=== PATIENT | female | born 1935 | race Caucasian/White ===

== ENCOUNTER 2016-12-13 09:19 | Emergency (ER) | payer MEDICARE ==
[~2016-12-13] VITALS: Ht 165.1 cm; Wt 58.2 kg
[~2016-12-13 09:19] MED LIST: ALPR0.5T99 PO; AMLO2.5T PO; ATOR10 PO; BIOT10004 PO; COZA100T PO; FISH1000 PO; FLON0.053; LEVO.05 PO; OCUVTAB PO; OMEP20CA5 PO; PANT20 PO; POTA-243 PO; PROP150T PO; VIT D-3 PO; VITA10002 PO; WARF-20 PO
[2016-12-13 09:28] VITALS: BP 159/86; PULSE 81; RESP 16; TEMP 97.8; O2SAT 99
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
[2016-12-13] MEDS ORDERED: TRAM50TA PO (09:56)
[2016-12-13] MEDS ORDERED: LEVO50TA4 PO (09:56)
[2016-12-13] MEDS ORDERED: COUM4TAB PO (09:56)
[2016-12-13] MEDS ORDERED: LOSA100T PO (09:56)
[2016-12-13] MEDS ORDERED: ROSU1TAB4 PO (09:56)
[2016-12-13] MEDS ORDERED: DONE5TAB7 PO (09:56)
[2016-12-13] MEDS ORDERED: PROP150T PO (09:56)
[2016-12-13] MEDS ORDERED: PANT40TA3 PO (09:56)
--- NOTE | 2016-12-13 10:03 | RADHPO ---
EXAM DATE/TIME: 12/13/2016 09:46 [facility] COMPARISON: CT BRAIN W/O CONTRAST, August 20, 2013, 15:18. INDICATIONS : Dizziness since last night. RADIATION DOSE: 60.59 CTDIvol (mGy) MEDICAL HISTORY : Cerebrovascular disease. Hypertension. SURGICAL HISTORY : Hysterectomy. Occipital infarct. cataract surgery. ENCOUNTER: Initial ACUITY: 2 days PAIN SCALE: 0/10 LOCATION: cranial TECHNIQUE: Multiple contiguous axial images were obtained of the head. Using automated exposure control and adj ustment of the mA and/or kV according to patient size, radiation dose was kept as low as reasonably a chievable to obtain optimal diagnostic quality images. FINDINGS: CEREBRUM: Remote left occipital infarct with minimal encephalomalacia. Scattered areas of low attenuation in th e white matter. The ventricles are normal for age. No evidence of midline shift, mass lesion, hemorr avtar or acute infarction. No extra-axial fluid collections are seen. POSTERIOR FOSSA: The cerebellum and brainstem are intact. The 4th ventricle is midline. The cerebellopontine angle i s unremarkable. EXTRACRANIAL: The visualized portion of the orbits is intact. SKULL: The calvaria is intact. No evidence of skull fracture. CONCLUSION: 1. Old left occipital infarct. 2. Nonspecific white matter changes. 3. No acute intracranial abnormality. Toby Keith MD on December 13, 2016 at 9:59 Board Certified Radiologist. This report was verified electronically.
[2016-12-13 10:26] LABS: AUTOMATED NEUTROPHIL # 4.9 TH/MM3 (1.8-7.7); BASOPHIL # 0.1 TH/MM3 (0-0.2); BASOPHIL % 0.8 % (0.0-2.0); EOSINOPHIL # 0.1 TH/MM3 (0-0.4); EOSINOPHIL % 0.8 % (0.0-4.0); HEMATOCRIT 34.7 % (35.0-46.0); LYMPH % 20.1 % (9.0-44.0); LYMPHOCYTE # 1.4 TH/MM3 (1.0-4.8); MEAN CELL VOLUME 83.4 FL (80.0-100.0); MEAN CORPUSCULAR HEMOGLOBIN 27.3 PG (27.0-34.0); MEAN CORPUSCULAR HGB CONC 32.7 % (32.0-36.0); MONO % 5.9 % (0.0-8.0); NEUT % 72.4 % (16.0-70.0); PLATELET COUNT 267 TH/MM3 (150-450); RED BLOOD COUNT 4.16 MIL/MM3 (4.00-5.30); RED CELL DISTRIBUTION WIDTH 15.6 % (11.6-17.2); WHITE BLOOD COUNT 6.9 TH/MM3 (4.0-11.0)
[2016-12-13 10:28] LABS: HEMO FLAGS DIFF FINAL
[2016-12-13 10:30] VITALS: BP 166/79; PULSE 66; RESP 16; O2SAT 99
[2016-12-13 10:35] LABS: POTASSIUM 3.5 MEQ/L (3.5-5.1)
[2016-12-13 10:39] LABS: BICARBONATE 25.2 MEQ/L (21.0-32.0)
[2016-12-13 10:41] LABS: PROTHROMBIN TIME - PATIENT 34.7 SEC (9.8-11.6)
--- NOTE | 2016-12-13 11:00 | RADHPO ---
EXAM DATE/TIME: 12/13/2016 10:27 [facility] COMPARISON: CHEST SINGLE AP, July 22, 2015, 11:23. INDICATIONS : Short of breath, nausea. MEDICAL HISTORY : None. SURGICAL HISTORY : Pacemaker. removal of pacemaker ENCOUNTER: Initial ACUITY: 2 days PAIN SCORE: 0/10 LOCATION: Bilateral chest FINDINGS: Portable AP view of the chest demonstrates a normal-sized cardiac silhouette. No effusion, consolidat ion, or pneumothorax is visualized. The bones and soft tissues demonstrate no acute abnormality. CONCLUSION: No acute cardiopulmonary abnormality is identified. Farhan Amaya MD on December 13, 2016 at 10:58 Board Certified Radiologist. This report was verified electronically.
[2016-12-13] MEDS ORDERED: MULT1TAB46 PO (11:17)
[2016-12-13] MEDS ORDERED: ALPR.5 PO (11:17)
[2016-12-13] MEDS ORDERED: VITA10002 PO (11:18)
[2016-12-13] MEDS ORDERED: BIOTCAP PO (11:18)
[2016-12-13] MEDS ORDERED: FLUT1SPR5 EACH NARE (11:21)
[2016-12-13] MEDS ORDERED: CEPH-460 PO (11:31)
[2016-12-13 11:44] VITALS: BP 158/65
--- NOTE | 2016-12-13 20:10 | EKG ---
Date Performed: 12/13/2016 Time Performed: 10:01:12 PTAGE: 81 years EKG: Sinus rhythm Anterior T wave changes are nonspecific Borderline ECG PREVIOUS TRACING : 08/20/2013 12.33 Compared to prior tracing no significant change DOCTOR: Hermila Garcia Interpretating Date/Time 12/13/2016 20:08:21
== END 2016-12-13 11:48 | disposition home or self-care (01) ==
LOC: PHED 09:19
DX: J01.00 Acute maxillary sinusitis, unspecified (principal); I48.91 Unspecified atrial fibrillation; R00.2 Palpitations; R06.02 Shortness of breath; M79.1 Myalgia; R53.1 Weakness; I10 Essential (primary) hypertension; I50.9 Heart failure, unspecified; K21.9 Gastro-esophageal reflux disease without esophagitis
CPT/HCPCS: 70450; 71010; 80048; 83880; 85025; 85610; 85730; 93005; 99285

== ENCOUNTER 2017-09-04 11:24 | Emergency (ER) | payer MEDICARE ==
[~2017-09-04] VITALS: Ht 160 cm; Wt 54.0 kg
[~2017-09-04 11:24] MED LIST changes: +ALPR.5 PO; -ALPR0.5T99 PO; -AMLO2.5T PO; -ATOR10 PO; -BIOT10004 PO; +BIOTCAP PO; +CEPH-460 PO; +COUM4TAB PO; -COZA100T PO; +DONE5TAB7 PO; -FISH1000 PO; -FLON0.053; +FLUT1SPR5 EACH NARE; -LEVO.05 PO; +LEVO50TA4 PO; +LOSA100T PO; +MULT1TAB46 PO; -OCUVTAB PO; -OMEP20CA5 PO; -PANT20 PO; +PANT40TA3 PO; -POTA-243 PO; +ROSU1TAB4 PO; +TRAM50TA PO; -VIT D-3 PO; -WARF-20 PO
[2017-09-04 11:36] VITALS: BP 120/58; PULSE 86; RESP 16; TEMP 98.1; O2SAT 98
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
--- NOTE | 2017-09-04 12:53 | RADRPT ---
EXAM DATE/TIME: 09/04/2017 12:31 [facility] COMPARISON: CHEST SINGLE AP, December 13, 2016, 10:27. INDICATIONS : Cough MEDICAL HISTORY : Hypertension. Congestive heart failure. Hypercholesterolemia. AFIB SURGICAL HISTORY : Pacemaker insertion/removal ENCOUNTER: Initial ACUITY: 2 weeks PAIN SCORE: 0/10 LOCATION: Bilateral chest FINDINGS: The heart is normal in size. There are chronic interstitial changes predominantly in the lung bases. The lungs are otherwise clear. The exam is stable compared to previous dated 12/13/16. The visualized osseous structures appear grossly intact. CONCLUSION: 1. Chronic appearing interstitial changes. No acute abnormality. Manish Malik MD on September 04, 2017 at 12:50 Board Certified Radiologist. This report was verified electronically.
[2017-09-04] MEDS ORDERED: BENZ100 PO (12:58)
[2017-09-04] MEDS ORDERED: WARF4TAB51 PO (13:04)
== END 2017-09-04 13:09 | disposition home or self-care (01) ==
LOC: PHEFT 11:24
DX: B34.9 Viral infection, unspecified (principal); R05 Cough; R09.81 Nasal congestion; J34.89 Other specified disorders of nose and nasal sinuses; I48.91 Unspecified atrial fibrillation; I10 Essential (primary) hypertension; E78.00 Pure hypercholesterolemia, unspecified; K21.9 Gastro-esophageal reflux disease without esophagitis; E07.9 Disorder of thyroid, unspecified; F03.90 Unspecified dementia, unspecified severity, without behavioral disturbance, psychotic disturbance, mood disturbance, and anxiety; F41.9 Anxiety disorder, unspecified; Z79.01 Long term (current) use of anticoagulants; Z87.39 Personal history of other diseases of the musculoskeletal system and connective tissue; Z86.73 Personal history of transient ischemic attack (TIA), and cerebral infarction without residual deficits; Z87.448 Personal history of other diseases of urinary system
CPT/HCPCS: 71045; 99283

== ENCOUNTER 2018-05-06 15:36 | Inpatient (IN) ==
--- NOTE | 2018-05-06 16:55 | ED ---
HPI General Chief Complaint: Syncope Stated Complaint: Syncopal Episode Time Seen by Provider: 05/06/18 15:45 History of Present Illness HPI narrative: This is a 83-year-old female with a history of atrial fibrillation, hyperlipidemia, hypertension, who presents today after having a syncopal episode while at the grocery store. Patient states she was loading her car with groceries when she passed out. She denies any preceding symptoms. She denies any headache, dizziness, shortness of breath. The patient denied any palpitations. She is unsure whether she struck her head. Patient is on Coumadin. The patient has not had any previous episodes like this in the past. There are no other complaints at the time of my examination. When paramedics arrived, they found her to be in atrial fibrillation with rapid ventricular response. Heart rate was in the 130s. Related Data Home Medications Medication Instructions Recorded Confirmed alprazolam 0.5 mg PO BID 04/17/18 05/06/18 amlodipine 2.5 mg PO DAILY 04/17/18 05/06/18 atorvastatin 20 mg PO DAILY 04/17/18 05/06/18 donepezil 5 mg PO DAILY 04/17/18 05/06/18 levothyroxine 75 mcg PO DAILY 04/17/18 05/06/18 losartan 100 mg PO DAILY 04/17/18 05/06/18 memantine 10 mg PO DAILY 04/17/18 05/06/18 omeprazole 20 mg PO DAILY 04/17/18 05/06/18 potassium chloride 10 meq PO TID 04/17/18 05/06/18 propafenone 150 mg PO Q8H 04/17/18 05/06/18 warfarin 4 mg PO DAILY 04/17/18 05/06/18 Allergies Allergy/AdvReac Type Severity Reaction Status Date / Time adhesive Allergy Severe SKIN BREAK Verified 04/17/18 13:46 amiodarone Allergy Severe vision Verified 04/17/18 13:46 problems codeine Allergy Severe Rash Verified 04/17/18 13:46 penicillin G Allergy Severe Rash Verified 04/17/18 13:46 Sulfa (Sulfonamide Allergy Severe Rash Verified 04/17/18 13:46 Antibiotics) PAPER TAPE AdvReac Severe SKIN BREAK Uncoded 04/17/18 13:46 Review of Systems ROS: all other systems reviewed are negative Constitutional Denies fever(s) and Denies weakness Eyes Reports system reviewed and no additional complaints, except as docu ENT Reports system reviewed and no additional complaints, except as docu Cardiovascular Reports irregular heart rhythm and Denies palpitations Respiratory Denies chest congestion, Denies cough and Denies dyspnea Gastrointestinal Denies abdominal pain, Denies nausea and Denies vomiting Genitourinary Reports system reviewed and no additional complaints, except as docu Musculoskeletal Reports system reviewed and no additional complaints, except as docu Neurologic Denies dizziness, Reports syncope, Denies headache(s) and Denies focal weakness PMFSH Social History Social History Substance History: No History of Abuse Smoking Status: Never smoker How Often Do You Have a Drink Containing Alcohol: Unable to Obtain Immunization History Tetanus Immunization: Unsure Exam Narrative Exam Narrative: GENERAL: Well-developed well-nourished female in no acute respiratory distress. SKIN: Focused skin assessment warm/dry. HEAD: Atraumatic. Normocephalic. EYES: No scleral icterus. No injection or drainage. ENT: No nasal bleeding or discharge. Mucous membranes pink and moist. NECK: Trachea midline. Supple. CARDIOVASCULAR: Irregularly irregular with a heart rate in the 120s-130s. No murmur appreciated. RESPIRATORY: No accessory muscle use. Clear to auscultation. Breath sounds equal bilaterally. GASTROINTESTINAL: Abdomen soft, non-tender, nondistended. Hepatic and splenic margins not palpable. MUSCULOSKELETAL: No obvious deformities. No clubbing. No cyanosis. No edema. NEUROLOGICAL: Awake and alert. No obvious cranial nerve deficits. Motor grossly within normal limits. Normal speech. Course Initial Documented Vital Signs Temperature 98.2 F 05/06/18 15:43 Pulse Rate 97 H 05/06/18 15:43 Respiratory Rate 20 05/06/18 15:43 Blood Pressure 145/80 H 05/06/18 15:43 Pulse Oximetry 99 05/06/18 15:43 Last Documented Vital Signs Temperature 98.2 F 05/06/18 15:43 Pulse Rate 80 10 15:49 Respiratory Rate 16 05/06/18 15:49 Blood Pressure 145/80 H 05/06/18 15:49 Pulse Oximetry 99 05/06/18 15:49 Medical Decision Making MDM Narrative Medical decision making narrative: 83-year-old female presents after having a syncopal episode. Patient was found to be in A. fib with RVR. She is been started on diltiazem drip with a bolus. Heart rate went into the 130s. Patient states she has not changed any of her new medications. She sees [facility] technical stenographer and is a patient of Dr. Ancelmo Barber. She will be admitted to the hospital for rate control. Case was discussed with the [facility] hospitalist. Medical Screen Exam Complete: Yes Emergency Medical Condition: Yes Differential Diagnosis Differential Diagnosis: A. fib with RVR versus metabolic derangement versus intracranial hemorrhage secondary to over anticoagulation Lab Data Result diagrams: 05/06/18 16:23 05/06/18 16:23 Lab Results 05/06/18 05/06/18 Range/Units 16:23 16:23 WBC 6.1 (4.0-11.0) th/mm3 RBC 3.77 L (4.00-5.30) mil/mm3 Hgb 10.5 L (11.6-15.3) gm/dL Hct 30.0 L (35.0-46.0) % MCV 79.7 L (80.0-100.0) fL MCH 27.8 (27.0-34.0) pg MCHC 34.9 (32.0-36.0) % RDW 17.1 (11.6-17.2) % Plt Count 272 (150-450) th/mm3 MPV 9.0 (7.0-11.0) fL Neut % (Auto) 68.1 (16.0-70.0) % Lymph % (Auto) 24.2 (9.0-44.0) % [place] % (Auto) 6.3 (0.0-8.0) % Eos % (Auto) 0.6 (0.0-4.0) % Baso % (Auto) 0.8 (0.0-2.0) % Neut # (Auto) 4.1 (1.8-7.7) th/mm3 Lymph # (Auto) 1.5 (1.0-4.8) th/mm3 [place] # (Auto) 0.4 (0.0-0.9) th/mm3 Eos # (Auto) 0.0 (0.0-0.4) th/mm3 Baso # (Auto) 0.0 (0.0-0.2) th/mm3 WBC Differential . Differential Comment Auto diff final Sodium 139 (136-145) meq/L Potassium 4.1 (3.5-5.1) meq/L Chloride 106 (98-107) meq/L Carbon Dioxide 27.0 (21.0-32.0) meq/L Anion Gap 6 (5-15) meq/L BUN 23 H (7-18) mg/dL Creatinine 0.87 (0.50-1.00) mg/dL Estimated GFR 62 L (>89) mL/min Random Glucose 93 (74-106) mg/dL Calcium 8.1 L (8.5-10.1) mg/dL Troponin I Less than 0.02 L (0.02-0.05) ng/mL Imaging Data Radiologist's impression: Chest X-Ray 05/06/18 00:00 CONCLUSION: 1. No acute abnormality or significant interval change. Cervical Spine CT 05/06/18 16:06 CONCLUSION: 1. No acute fracture or subluxation. 2. Degenerative spondylosis of the cervical spine, as above. 3. Multiple subcentimeter left thyroid nodules. Discharge Plan Discharge Disposition Patient Disposition: 30 Still Patient Discharge Details Diagnosis: Atrial fibrillation with rapid ventricular response, Syncope, Anticoagulated, Dyslipidemia Physicians Team ED Provider: Amado Clayton Primary Care Provider: Ancelmo Mcclelland Other Providers: Macario Hogan Rxs /Orders / Referrals /Forms Prescriptions: No Action propafenone 150 mg Tablet 150 mg PO Q8H RF: 0 potassium chloride 10 mEq Capsule, Extended Release 10 meq PO TID RF: 0 atorvastatin 20 mg Tablet 20 mg PO DAILY RF: 0 donepezil 5 mg Tablet 5 mg PO DAILY RF: 0 amlodipine 2.5 mg Tablet 2.5 mg PO DAILY RF: 0 levothyroxine 75 mcg Tablet 75 mcg PO DAILY RF: 0 alprazolam 0.5 mg Tablet 0.5 mg PO BID RF: 0 omeprazole 20 mg Capsule,Delayed Release(Dr/Ec) 20 mg PO DAILY RF: 0 losartan 100 mg Tablet 100 mg PO DAILY RF: 0 memantine 10 mg Tablet 10 mg PO DAILY RF: 0 warfarin 4 mg Tablet 4 mg PO DAILY RF: 0 Status ED Status: In Room
[2018-05-06 17:08] LABS: Baso % (Auto) 0.8 % (0.0-2.0); Eos % (Auto) 0.6 % (0.0-4.0); Hemoglobin 10.5 gm/dL (11.6-15.3); Lymph # (Auto) 1.5 th/mm3 (1.0-4.8); Lymph % (Auto) 24.2 % (9.0-44.0); Mean Corpuscular HGB Conc 34.9 % (32.0-36.0); Mean Corpuscular Hemoglobin 27.8 pg (27.0-34.0); Mean Corpuscular Volume 79.7 fL (80.0-100.0); Mono # (Auto) 0.4 th/mm3 (0.0-0.9); Mono % (Auto) 6.3 % (0.0-8.0); Neut # (Auto) 4.1 th/mm3 (1.8-7.7); Neut % (Auto) 68.1 % (16.0-70.0); Platelet Count 272 th/mm3 (150-450); Red Blood Count 3.77 mil/mm3 (4.00-5.30); Red Cell Distribution Width 17.1 % (11.6-17.2); White Blood Count 6.1 th/mm3 (4.0-11.0)
[2018-05-06 17:28] LABS: Anion Gap 6 meq/L (5-15); Blood Urea Nitrogen 23 mg/dL (7-18); Calcium 8.1 mg/dL (8.5-10.1); Chloride 106 meq/L (98-107); Glomerular Filtration Rate 62 mL/min (>89); Glucose,Random 93 mg/dL (74-106); Potassium 4.1 meq/L (3.5-5.1); Sodium 139 meq/L (136-145)
--- NOTE | 2018-05-06 17:58 | P.HP ---
<Loni Hamilton - Last Filed: 05/06/18 18:51> History of Present Illness Primary Care Physician: Ancelmo Mcclelland MD Chief Complaint: Syncope History of Present Illness: 83-year-old female patient with past medical history Alzheimer's disease, atrial fibrillation on Coumadin, Schatzki's ring, hyperlipoidemia, hypothyroidism, hypertension and GERD. Patient presented to the today after having a syncopal episode while at the grocery store. Patient states she was loading her car with groceries when she passed out. She denies any preceding symptoms. She denies any headache, dizziness, shortness of breath or palpitations. She is unsure whether she struck her head or not. The patient denies any previous episodes like this in the past. There are no other complaints at the time of my examination. When paramedics arrived, they found her to be in atrial fibrillation with rapid ventricular response. Heart rate was in the 130s. Patient reports pain right upper extremity. EKG on admission reveals atrial fibrillation with RVR at a rate of 104 Outpatient 2D echocardiogram May 2017 reviewed and reveals normal left ventricular size. Wall thickness is measured at the upper limits of normal. The left ventricular systolic function is normal with an estimated ejection fraction in the range of 60-65%. Doppler parameters are consistent with a pseudonormal left ventricular filling pattern with concomitant abnormal relaxation and increased filling pressures (grade 2 diastolic dysfunction). Left atrial size is mildly dilated. Mild thickening of the mitral valve leaflets. Mild mitral annular calcification. Mild to moderate mitral valve regurgitation. Structurally normal tricuspid valve. There is mild tricuspid valve regurgitation. Estimated pulmonary arterial pressure is 26.2 mm per mercury. Normal estimated pulmonary pressures. 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 Family medical history: Reviewed and noncontributory Social history: Denies EtOH use tobacco use or illicit drug use - Diagnosis (1) Syncope (2) Atrial fibrillation with rapid ventricular response Review of Systems All other systems reviewed negative except as stated in HPI PMF - History History Provided By: Patient, [employer] Specialist / EMT - Medical History Medical History: Medical History (Last Reviewed 04/17/18 @ 14:27 by Brooke Cameron) GERD (gastroesophageal reflux disease) HTN (hypertension) History of atrial fibrillation History of dementia History of hypothyroidism History of hysterectomy - Tobacco History Smoking Status: Never smoker - Alcohol History How Often Do You Have a Drink Containing Alcohol: Unable to Obtain - Substance Use History Substance History: No History of Abuse - Immunization History Tetanus Immunization: Unsure Medications and Allergies Allergies Allergy/AdvReac Type Severity Reaction Status Date / Time adhesive Allergy Severe SKIN BREAK Verified 04/17/18 13:46 amiodarone Allergy Severe vision Verified 04/17/18 13:46 problems codeine Allergy Severe Rash Verified 04/17/18 13:46 penicillin G Allergy Severe Rash Verified 04/17/18 13:46 Sulfa (Sulfonamide Allergy Severe Rash Verified 04/17/18 13:46 Antibiotics) PAPER TAPE AdvReac Severe SKIN BREAK Uncoded 04/17/18 13:46 Home Medications Medication Instructions Recorded Confirmed Type alprazolam 0.5 mg PO BID 04/17/18 05/06/18 History amlodipine 2.5 mg PO DAILY 04/17/18 05/06/18 History atorvastatin 20 mg PO DAILY 04/17/18 05/06/18 History donepezil 5 mg PO DAILY 04/17/18 05/06/18 History levothyroxine 75 mcg PO DAILY 04/17/18 05/06/18 History losartan 100 mg PO DAILY 04/17/18 05/06/18 History memantine 10 mg PO DAILY 04/17/18 05/06/18 History omeprazole 20 mg PO DAILY 04/17/18 05/06/18 History potassium chloride 10 meq PO TID 04/17/18 05/06/18 History propafenone 150 mg PO Q8H 04/17/18 05/06/18 History warfarin 4 mg PO DAILY 04/17/18 05/06/18 History Active Medications: Active Medications Diltiazem HCl 125 mg/ Sodium (Chloride) 125 mls @ 5 mls/hr IV.CONT TITRATE PRN ; Protocol PRN Reason: Per Protocol Exam Vital signs: Vital Signs 05/06/18 15:43 05/06/18 15:49 Temperature 98.2 F Pulse Rate 97 H 80 Respiratory Rate 20 16 Blood Pressure 145/80 H 145/80 H Pulse Oximetry 99 99 Intake & Output 05/05/18 05/06/18 05/06/18 18:59 06:59 18:59 Weight 53.524 kg Narrative: GENERAL: This is a well-nourished, well-developed patient, in no apparent distress. SKIN: ecchymosis right upper arm CARDIOVASCULAR: Irregularly irregular and tachycardic RESPIRATORY: Clear to auscultation. Breath sounds equal bilaterally. No wheezes , rales, or rhonchi. GASTROINTESTINAL: Abdomen soft, non-tender, nondistended. Normal active bowel sounds MUSCULOSKELETAL: Extremities without clubbing, cyanosis, or edema. NEURO: Awake and alert. Moves all ext x4 Results - Labs CBC & Chem 7: 05/06/18 16:23 05/06/18 16:23 Labs: Laboratory Results - last 24 hr 05/06/18 05/06/18 16:23 16:23 WBC 6.1 RBC 3.77 L Hgb 10.5 L Hct 30.0 L MCV 79.7 L MCH 27.8 MCHC 34.9 RDW 17.1 Plt Count 272 MPV 9.0 Neut % (Auto) 68.1 Lymph % (Auto) 24.2 [place] % (Auto) 6.3 Eos % (Auto) 0.6 Baso % (Auto) 0.8 Neut # (Auto) 4.1 Lymph # (Auto) 1.5 [place] # (Auto) 0.4 Eos # (Auto) 0.0 Baso # (Auto) 0.0 WBC Differential . Differential Comment Auto diff final Sodium 139 Potassium 4.1 Chloride 106 Carbon Dioxide 27.0 Anion Gap 6 BUN 23 H Creatinine 0.87 Estimated GFR 62 L Random Glucose 93 Calcium 8.1 L Troponin I Less than 0.02 L Caprini VTE Risk Assessment Caprini VTE Risk Assessment: Moderate/High Risk (score >= 2) Caprini Risk Assessment Model: Point Value = 1 Point Value = 2 Point Value = 3 Point Value = 5 Age 41-60 Minor surgery BMI > 25 kg/m2 Swollen legs Varicose veins or History of unexplained or recurrent spontaneous Oral contraceptives or hormone replacement Sepsis (< 1 month) Serious lung disease, including pneumonia (< 1 month) Abnormal pulmonary function Acute myocardial infarction Congestive heart failure (< 1 month) History of inflammatory bowel disease Medical patient at bed rest Age 61-74 Arthroscopic surgery Major open surgery (> 45 min) Laparoscopic surgery (> 45 min) Malignancy Confined to bed (> 72 hours) Immobilizing plaster cast Central venous access Age >= 75 History of VTE Family history of VTE Factor V Leiden Prothrombin [id number] Lupus anticoagulant Anticardiolipin antibodies Elevated serum homocysteine Heparin-induced thrombocytopenia Other congenital or acquired thrombophilia Stroke (< 1 month) Elective arthroplasty Hip, pelvis, or leg fracture Acute spinal cord injury (< 1 month) Prophylaxis Regimen: Total Risk Factor Score Risk Level Prophylaxis Regimen 0-1 Low Early ambulation 2 Moderate Order ONE of the following: *Sequential Compression Device (SCD) *Heparin 5000 units SQ BID 3-4 Higher Order ONE of the following medications: *Heparin 5000 units SQ TID *Enoxaparin/Lovenox 40 mg SQ daily (WT < 150 kg, CrCl > 30 mL/min) *Enoxaparin/Lovenox 30 mg SQ daily (WT < 150 kg, CrCl > 10-29 mL/min) *Enoxaparin/Lovenox 30 mg SQ BID (WT < 150 kg, CrCl > 30 mL/min) AND/OR *Sequential Compression Device (SCD) 5 or more Highest Order ONE of the following medications: *Heparin 5000 units SQ TID (Preferred with Epidurals) *Enoxaparin/Lovenox 40 mg SQ daily (WT < 150 kg, CrCl > 30 mL/min) *Enoxaparin/Lovenox 30 mg SQ daily (WT < 150 kg, CrCl > 10-29 mL/min) *Enoxaparin/Lovenox 30 mg SQ BID (WT < 150 kg, CrCl > 30 mL/min) AND *Sequential Compression Device (SCD) Assessment and Plan - Assessment (1) Syncope Code(s): R55 - Syncope and collapse Status: Acute Plan: 83-year-old female patient with past medical history of Alzheimer's dementia, atrial fibrillation on Coumadin, Schatzki's ring, hyperlipidemia, hypothyroidism , hypertension and GERD. Patient presented to the today after having a syncopal episode while at the grocery store. Patient states she was loading her car with groceries when she passed out. She denies any preceding symptoms. She denies any headache, dizziness, shortness of breath or palpitations. She is unsure whether she struck her head or not. The patient denies any previous episodes like this in the past. There are no other complaints at the time of my examination. When paramedics arrived, they found her to be in atrial fibrillation with rapid ventricular response. Heart rate was in the 130s. Syncopal episode likely related to atrial fibrillation RVR EKG on admission reveals atrial fibrillation with RVR at a rate of 104 Outpatient 2D echocardiogram May 2017 reviewed and reveals normal left ventricular size. Wall thickness is measured at the upper limits of normal. The left ventricular systolic function is normal with an estimated ejection fraction in the range of 60-65%. Doppler parameters are consistent with a pseudonormal left ventricular filling pattern with concomitant abnormal relaxation and increased filling pressures (grade 2 diastolic dysfunction). Left atrial size is mildly dilated. Mild thickening of the mitral valve leaflets. Mild mitral annular calcification. Mild to moderate mitral valve regurgitation. Structurally normal tricuspid valve. There is mild tricuspid valve regurgitation. Estimated pulmonary arterial pressure is 26.2 mm per mercury. Normal estimated pulmonary pressures Repeat 2D echocardiogram ordered Coumadin currently on hold awaiting INR level Cardizem drip Continue patient's home propafenone Continuous telemetry Consult cardiology Abrasion R upper arm Consult wound care Alzheimer's dementia Continue patient Aricept 5 mg p.o. daily, Namenda 10 mg daily and alprazolam 0.5 mg BID Hyperlipidemia Continue home atorvastatin 20 mg p.o. daily hypothyroidism Continue home levothyroxine 75 mcg daily Check TSH hypertension Continue patient's home amlodipine 2.5 mg p.o. daily, losartan 100 mg p.o. daily GERD Continue patient's home omeprazole 20 mg p.o. daily DVT prophylaxis awaiting INR patient normally takes Coumadin at home (2) Atrial fibrillation with rapid ventricular response Code(s): I48.91 - Unspecified atrial fibrillation Status: Acute <Sean Larson - Last Filed: 05/11/18 11:15> History of Present Illness Primary Care Physician: Ancelmo Mcclelland MD - Diagnosis (1) Atrial fibrillation with rapid ventricular response (2) Syncope Inpatient Certification: I certify that the inpatient services were ordered in accordance with Medicare regulations governing the order. This includes certification that hospital inpatient services are reasonable and necessary and in the case of services not specified as inpatient-only under 42 CFR 419.22(n), that they are appropriately provided as inpatient services in accordance to with the 2-midnight benchmark under 43 CFR 412.3(e) [facility], [facility] - Medical History Medical History: Medical History (Last Reviewed 04/17/18 @ 14:27 by Brooke Cameron) GERD (gastroesophageal reflux disease) HTN (hypertension) History of atrial fibrillation History of dementia History of hypothyroidism History of hysterectomy Results - Labs CBC & Chem 7: 05/06/18 16:23 05/06/18 16:23 Caprini VTE Risk Assessment Caprini Risk Assessment Model: Point Value = 1 Point Value = 2 Point Value = 3 Point Value = 5 Age 41-60 Minor surgery BMI > 25 kg/m2 Swollen legs Varicose veins or History of unexplained or recurrent spontaneous Oral contraceptives or hormone replacement Sepsis (< 1 month) Serious lung disease, including pneumonia (< 1 month) Abnormal pulmonary function Acute myocardial infarction Congestive heart failure (< 1 month) History of inflammatory bowel disease Medical patient at bed rest Age 61-74 Arthroscopic surgery Major open surgery (> 45 min) Laparoscopic surgery (> 45 min) Malignancy Confined to bed (> 72 hours) Immobilizing plaster cast Central venous access Age >= 75 History of VTE Family history of VTE Factor V Leiden Prothrombin [id number] Lupus anticoagulant Anticardiolipin antibodies Elevated serum homocysteine Heparin-induced thrombocytopenia Other congenital or acquired thrombophilia Stroke (< 1 month) Elective arthroplasty Hip, pelvis, or leg fracture Acute spinal cord injury (< 1 month) Prophylaxis Regimen: Total Risk Factor Score Risk Level Prophylaxis Regimen 0-1 Low Early ambulation 2 Moderate Order ONE of the following: *Sequential Compression Device (SCD) *Heparin 5000 units SQ BID 3-4 Higher Order ONE of the following medications: *Heparin 5000 units SQ TID *Enoxaparin/Lovenox 40 mg SQ daily (WT < 150 kg, CrCl > 30 mL/min) *Enoxaparin/Lovenox 30 mg SQ daily (WT < 150 kg, CrCl > 10-29 mL/min) *Enoxaparin/Lovenox 30 mg SQ BID (WT < 150 kg, CrCl > 30 mL/min) AND/OR *Sequential Compression Device (SCD) 5 or more Highest Order ONE of the following medications: *Heparin 5000 units SQ TID (Preferred with Epidurals) *Enoxaparin/Lovenox 40 mg SQ daily (WT < 150 kg, CrCl > 30 mL/min) *Enoxaparin/Lovenox 30 mg SQ daily (WT < 150 kg, CrCl > 10-29 mL/min) *Enoxaparin/Lovenox 30 mg SQ BID (WT < 150 kg, CrCl > 30 mL/min) AND *Sequential Compression Device (SCD) Assessment and Plan - Assessment (1) Atrial fibrillation with rapid ventricular response Code(s): I48.91 - Unspecified atrial fibrillation Status: Acute (2) Syncope Code(s): R55 - Syncope and collapse Status: Acute - Attending Attestation The exam, history, and the medical decision-making described in the above note were completed with the assistance of the mid-level provider. I reviewed and agree with the findings presented. I attest that I had a [id number] encounter with the patient on the same day, and personally performed and documented my assessment and findings in the medical record. Patient examined. Assessment and plan formulated with Loni Hamilton PA-C. I agree with the above. <Loin Hamilton W - Last Filed: 05/06/18 18:51> (1) Syncope Qualifiers: Syncope type: unspecified Qualified Code(s): R55 - Syncope and collapse <Sean Larson B - Last Filed: 05/11/18 11:15> (2) Syncope Qualifiers: Syncope type: unspecified Qualified Code(s): R55 - Syncope and collapse
--- NOTE | 2018-05-06 18:13 | CT ---
EXAM DATE: 05/06/2018 5:07 PM EDT AGE/SEX: 83 years / Female INDICATIONS: Fall, trauma, syncope CLINICAL DATA: This is the patient's initial encounter. Patient reports that signs and symptoms have been present for 1 day and indicates a pain score of 0/10. MEDICAL/SURGICAL HISTORY: Gastroesophageal reflux disease. Dementia. Hypothyroidism. Hyperte nsion, Atrial Fib Hysterectomy. RADIATION DOSE: 40.61 CTDI (mGy) COMPARISON: No prior exams available for comparison. TECHNIQUE: Contiguous axial images were obtained using helical multirow detector technique. The vol umetric data was post-processed with multiplanar reconstruction in oblique axial, sagittal, and coron al planes. Using automated exposure control and adjustment of the mA and/or kV according to patient s ize, radiation dose was kept as low as reasonably achievable to obtain optimal diagnostic quality monica ges. DICOM format image data is available electronically for review and comparison. FINDINGS: OSSEOUS STRUCTURES: Vertebral body heights are maintained. Osseous structures are intact without evid ence for acute bony fracture. Dens is intact. ALIGNMENT: Sagittal alignment is maintained. There is a normal C1-2 relationship. Facets are normal ly aligned. SOFT TISSUES: There is no significant prevertebral soft tissue hematoma. No significant cervical dami nopathy or gross mass. Multiple subcentimeter left thyroid nodules.Visualized lung apices are clear without pneumothorax. ADDITIONAL FINDINGS: Multilevel degenerative spondylosis of the cervical spine with multilevel facet hypertrophy most prominently on the left at C3-4 and C4-5. Bony central canal is patent. Bony neural foramina are patent. CONCLUSION: 1. No acute fracture or subluxation. 2. Degenerative spondylosis of the cervical spine, as above. 3. Multiple subcentimeter left thyroid nodules. Electronically signed by: Anselmo Merlos MD 05/06/2018 6:12 PM EDT
--- NOTE | 2018-05-06 18:19 | XR ---
EXAM DATE: 05/06/2018 12:00 AM EDT AGE/SEX: 83 years / Female INDICATIONS: syncopal episode. CLINICAL DATA: This is the patient's initial encounter. Patient reports that signs and symptoms have been present for 1 day and indicates a pain score of 0/10. MEDICAL/SURGICAL HISTORY: . Gastroesophageal reflux disease. Dementia. Hypothyroidism. Hyperten amanda, Atrial Fib Hysterectomy. COMPARISON: [facility], CHEST SINGLE AP, 09/04/2017. . FINDINGS: Mild diffuse interstitial prominence similar to previous exam. No new focal pleural or parenchymal op acities. The cardiomediastinal contours are unremarkable. Osseous structures are intact. CONCLUSION: 1. No acute abnormality or significant interval change. Electronically signed by: Anselmo Merlos MD 05/06/2018 6:18 PM EDT
[2018-05-06] MEDS: dilTIAZem Inj 125 MG in Sodium Chlor 0.9% Inj 100 ML IV.CONT PRN (18:27)
[2018-05-06] MEDS ORDERED: Acetaminophen 500 MG Tablet PO PRN (18:55)
[2018-05-06 19:01] LABS: T4 (Thyroxine) 9.7 mcg/dL (4.8-13.9)
[2018-05-06 19:09] LABS: Thyroid Stimulating Hormone 1.86 uIU/mL (0.358-3.740)
[2018-05-06] MEDS: Propafenone 150 MG Tablet PO SCH ×2 (19:28→23:51)
[2018-05-06] MEDS: Potassium Chloride 10 MEQ ER Capsule PO SCH (19:28)
[2018-05-06] MEDS: ALPRAZolam 0.5 MG Tablet PO SCH (21:47)
[2018-05-06 22:26] LABS: INR 3.2 Ratio
[2018-05-07] MEDS: dilTIAZem Inj 125 MG in Sodium Chlor 0.9% Inj 100 ML IV.CONT PRN (02:58)
[2018-05-07] MEDS: Levothyroxine 75 MCG Tablet PO SCH (06:25)
[2018-05-07] MEDS: Propafenone 150 MG Tablet PO SCH ×3 (06:31→21:13)
--- NOTE | 2018-05-07 08:09 | P.CONCA ---
History of Present Illness Primary Care Provider: Ancelmo Mcclelland MD Chief Complaint: Syncope History of Present Illness: 83-year-old female with past medical history of A. fib, HTN, HLD, Alzheimer's who presented after fall. The patient states she was unloading her groceries into her car at [employer] yesterday when she felt a sharp pain in her head, and then became weak in her legs and fell. She landed on her right arm and buttocks. She adamantly denies loss of consciousness. She reports some nausea recently, otherwise has been feeling well. She does report that she does not drink much water. Shortness of breath, lightheadedness, dizziness, palpitations. EKG on presentation to the ED showed A. fib with rate 104. The patient was placed on Cardizem gtt. which was discontinued overnight as patient converted to sinus rhythm and sinus bradycardia. Currently NSR on telemetry. Currently patient's only complaints are pain in her right arm and right buttocks , otherwise feels well. Review of Systems All other systems reviewed negative except as stated in [facility] - History History Provided By: Patient, Medical Record - Medical History Medical History: Medical History (Last Reviewed 04/17/18 @ 14:27 by Brooke Cameron) GERD (gastroesophageal reflux disease) HTN (hypertension) History of atrial fibrillation History of dementia History of hypothyroidism History of hysterectomy - Tobacco History Second Hand Smoke Exposure: No Smoking Status: Never smoker - Alcohol History How Often Do You Have a Drink Containing Alcohol: Monthly or less - Substance Use History Substance History: No History of Abuse - Immunization History Tetanus Immunization: Unsure Hx Influenza Vaccine This Season: Yes Medications and Allergies Active Medications: Active Medications Acetaminophen (Tylenol) 500 mg PO Q6H PRN PRN Reason: pain 1-4 Alprazolam (Xanax) 0.5 mg PO BID [facility] Last Admin: 05/06/18 21:47 Dose: 0.5 mg Amlodipine Besylate (Norvasc) 2.5 mg PO DAILY [facility] Atorvastatin Calcium (Lipitor) 20 mg PO DAILY [facility] Last Admin: 05/06/18 18:50 Dose: 20 mg Donepezil HCl (Aricept) 5 mg PO DAILY [facility] Levothyroxine Sodium (Synthroid) 75 mcg PO DAILY@0600 [facility] Last Admin: 05/07/18 06:25 Dose: 75 mcg Losartan Potassium (Cozaar) 100 mg PO DAILY [facility] Memantine (Namenda) 10 mg PO DAILY [facility] Miscellaneous (Pill Splitter) 1 each OTHER PRN [facility] Pantoprazole Sodium (Protonix) 20 mg PO DAILY [facility] Potassium Chloride (Kcl) 10 meq PO TID [facility] Last Admin: 05/06/18 19:28 Dose: 10 meq Propafenone HCl (Rythmol) 150 mg PO Q8HR [facility] Last Admin: 05/07/18 06:31 Dose: Not Given Sodium Chloride (Ns Flush) 2 ml IV.FLUSH PRN PRN PRN Reason: FLUSH AFTER USING IV ACCESS Sodium Chloride (Ns Flush) 2 ml IV.FLUSH BID [facility] Last Admin: 05/06/18 21:48 Dose: Not Given Tramadol HCl (Ultram) 50 mg PO Q8H PRN PRN Reason: pain 5-10 Last Admin: 05/07/18 03:06 Dose: 50 mg Allergies Allergy/AdvReac Type Severity Reaction Status Date / Time adhesive Allergy Severe SKIN BREAK Verified 04/17/18 13:46 amiodarone Allergy Severe vision Verified 04/17/18 13:46 problems codeine Allergy Severe Rash Verified 04/17/18 13:46 penicillin G Allergy Severe Rash Verified 04/17/18 13:46 Sulfa (Sulfonamide Allergy Severe Rash Verified 04/17/18 13:46 Antibiotics) PAPER TAPE AdvReac Severe SKIN BREAK Uncoded 04/17/18 13:46 Home Medications Medication Instructions Recorded Confirmed Type alprazolam 0.5 mg PO BID 04/17/18 05/06/18 History amlodipine 2.5 mg PO DAILY 04/17/18 05/06/18 History atorvastatin 20 mg PO DAILY 04/17/18 05/06/18 History donepezil 5 mg PO DAILY 04/17/18 05/06/18 History levothyroxine 75 mcg PO DAILY 04/17/18 05/06/18 History losartan 100 mg PO DAILY 04/17/18 05/06/18 History memantine 10 mg PO DAILY 04/17/18 05/06/18 History omeprazole 20 mg PO DAILY 04/17/18 05/06/18 History potassium chloride 10 meq PO TID 04/17/18 05/06/18 History propafenone 150 mg PO Q8H 04/17/18 05/06/18 History warfarin 4 mg PO DAILY 04/17/18 05/06/18 History Exam Vital signs: Vital Signs 05/06/18 15:43 05/06/18 15:49 05/06/18 19:30 Temperature 98.2 F Pulse Rate 97 H 80 128 H Respiratory Rate 20 16 20 Blood Pressure 145/80 H 145/80 H 162/82 H Pulse Oximetry 99 99 99 05/06/18 21:29 05/06/18 23:07 05/07/18 00:00 Temperature 98.9 F Pulse Rate 70 74 74 Respiratory Rate 18 16 Blood Pressure 153/70 H 141/62 H Pulse Oximetry 95 99 05/07/18 01:00 05/07/18 02:00 05/07/18 03:00 Temperature Pulse Rate 94 H 80 67 Respiratory Rate Blood Pressure Pulse Oximetry 05/07/18 04:00 05/07/18 05:00 05/07/18 06:00 Temperature Pulse Rate 68 48 L 48 L Respiratory Rate 18 Blood Pressure 119/75 Pulse Oximetry 100 05/07/18 07:00 Temperature Pulse Rate 45 L Respiratory Rate Blood Pressure Pulse Oximetry Intake & Output 05/06/18 05/07/18 05/07/18 18:59 06:59 18:59 Intake Total 375 / 375 Output Total 300 / 300 Balance 75 / 75 Weight 118 lb 118 lb 6.212 oz Intake: IV 135 / 135 Cardizem Inj 125 MG In NS Inj 135 / 135 100 ML @ 5 MG/HR 5 mls/hr IV. CONT TITRATE PRN Rx#:[id number] Oral 240 / 240 Output: Urine 300 / 300 Other: Date of Last Bowel Movement 05/05/18 # Bowel Movements 0 Weight On Admission 118 lb 6.212 oz Narrative: GENERAL: Well-developed well-nourished. In no acute distress. NECK: No carotid bruits. No JVD. CARDIOVASCULAR: Regular rate and rhythm. No murmur appreciated. RESPIRATORY: No accessory muscle use. Clear to auscultation. Breath sounds equal bilaterally. MUSCULOSKELETAL: No clubbing or cyanosis. No edema. Right arm ecchymosis. NEUROLOGICAL: Awake and alert. Normal speech. Results 05/06/18 16:23 05/06/18 16:23 Cardiac Enzymes 05/06/18 Range/Units 16:23 Troponin I Less than 0.02 L (0.02-0.05) ng/mL Coagulation 05/06/18 Range/Units 21:54 PT 32.0 H D (9.8-11.6) sec CBC 05/06/18 Range/Units 16:23 WBC 6.1 (4.0-11.0) th/mm3 RBC 3.77 L (4.00-5.30) mil/mm3 Hgb 10.5 L (11.6-15.3) gm/dL Hct 30.0 L (35.0-46.0) % Plt Count 272 (150-450) th/mm3 Neut # (Auto) 4.1 (1.8-7.7) th/mm3 Lymph # (Auto) 1.5 (1.0-4.8) th/mm3 [place] # (Auto) 0.4 (0.0-0.9) th/mm3 Eos # (Auto) 0.0 (0.0-0.4) th/mm3 Baso # (Auto) 0.0 (0.0-0.2) th/mm3 Comprehensive Metabolic Panel 05/06/18 Range/Units 16:23 Sodium 139 (136-145) meq/L Potassium 4.1 (3.5-5.1) meq/L Chloride 106 (98-107) meq/L Carbon Dioxide 27.0 (21.0-32.0) meq/L BUN 23 H (7-18) mg/dL Creatinine 0.87 (0.50-1.00) mg/dL Calcium 8.1 L (8.5-10.1) mg/dL Intake and Output 05/06/18 05/07/18 05/07/18 22:59 06:59 14:59 Intake Total 375 / 375 Output Total 300 / 300 Balance 75 / 75 Intake: IV 135 / 135 Cardizem Inj 125 MG In NS Inj 135 / 135 100 ML @ 5 MG/HR 5 mls/hr IV. CONT TITRATE PRN Rx#:[id number] Oral 240 / 240 Output: Urine 300 / 300 Other: Date of Last Bowel Movement 05/05/18 # Bowel Movements 0 Weight 118 lb 118 lb 6.212 oz Weight On Admission 118 lb 6.212 oz - Imaging and Cardiology Imaging: Impressions Chest X-Ray 05/06/18 00:00 CONCLUSION: 1. No acute abnormality or significant interval change. Cervical Spine CT 05/06/18 16:06 CONCLUSION: 1. No acute fracture or subluxation. 2. Degenerative spondylosis of the cervical spine, as above. 3. Multiple subcentimeter left thyroid nodules. Assessment and Plan - Plan 83-year-old female with past medical history of A. fib, HTN, HLD, Alzheimer's who presented after fall Assessment: Fall of unclear etiology - no LOC Atrial fibrillation - currently NSR Supratherapeutic INR 3.2 - warfarin held yesterday Plan: Recommend 24-hour Holter monitor, can be done as outpatient No change to current cardiac medications Okay for discharge home from cardiology perspective later today Follow-up with Dr. Hogan or Dr. Worrell in 2 weeks Discussed Condition With: Patient seen and examined with Dr. Hogan
--- NOTE | 2018-05-07 08:33 | P.PNIM ---
Subjective Interval history: pt w/out new complaints. right arm bruising from fall. Physical Exam Vital signs: Vital Signs 05/06/18 15:43 05/06/18 15:49 05/06/18 19:30 Temperature 98.2 F Pulse Rate 97 H 80 128 H Respiratory Rate 20 16 20 Blood Pressure 145/80 H 145/80 H 162/82 H Pulse Oximetry 99 99 99 05/06/18 21:29 05/06/18 23:07 05/07/18 00:00 Temperature 98.9 F Pulse Rate 70 74 74 Respiratory Rate 18 16 Blood Pressure 153/70 H 141/62 H Pulse Oximetry 95 99 05/07/18 01:00 05/07/18 02:00 05/07/18 03:00 Temperature Pulse Rate 94 H 80 67 Respiratory Rate Blood Pressure Pulse Oximetry 05/07/18 04:00 05/07/18 05:00 05/07/18 06:00 Temperature Pulse Rate 68 48 L 48 L Respiratory Rate 18 Blood Pressure 119/75 Pulse Oximetry 100 05/07/18 07:00 Temperature Pulse Rate 45 L Respiratory Rate Blood Pressure Pulse Oximetry Intake & Output 05/06/18 05/07/18 05/07/18 18:59 06:59 18:59 Intake Total 375 / 375 Output Total 300 / 300 Balance 75 / 75 Weight 53.524 kg 53.7 kg Intake: IV 135 / 135 Cardizem Inj 125 MG In NS Inj 135 / 135 100 ML @ 5 MG/HR 5 mls/hr IV. CONT TITRATE PRN Rx#:[id number] Oral 240 / 240 Output: Urine 300 / 300 Other: Date of Last Bowel Movement 05/05/18 # Bowel Movements 0 Weight On Admission 53.7 kg heart reg lung cta abd s/nt ext rue ecchymosis. no edema Results - Labs CBC & Chem 7: 05/06/18 16:23 05/06/18 16:23 Laboratory Results - last 24 hr 05/06/18 05/06/18 05/06/18 16:23 16:23 16:23 WBC 6.1 RBC 3.77 L Hgb 10.5 L Hct 30.0 L MCV 79.7 L MCH 27.8 MCHC 34.9 RDW 17.1 Plt Count 272 MPV 9.0 Neut % (Auto) 68.1 Lymph % (Auto) 24.2 [place] % (Auto) 6.3 Eos % (Auto) 0.6 Baso % (Auto) 0.8 Neut # (Auto) 4.1 Lymph # (Auto) 1.5 [place] # (Auto) 0.4 Eos # (Auto) 0.0 Baso # (Auto) 0.0 WBC Differential . Differential Comment Auto diff final PT INR Sodium 139 Potassium 4.1 Chloride 106 Carbon Dioxide 27.0 Anion Gap 6 BUN 23 H Creatinine 0.87 Estimated GFR 62 L Random Glucose 93 Calcium 8.1 L Troponin I Less than 0.02 L TSH 1.860 Thyroxine (T4) 9.7 05/06/18 21:54 WBC RBC Hgb Hct MCV MCH MCHC RDW Plt Count MPV Neut % (Auto) Lymph % (Auto) [place] % (Auto) Eos % (Auto) Baso % (Auto) Neut # (Auto) Lymph # (Auto) [place] # (Auto) Eos # (Auto) Baso # (Auto) WBC Differential Differential Comment PT 32.0 H D INR 3.2 Sodium Potassium Chloride Carbon Dioxide Anion Gap BUN Creatinine Estimated GFR Random Glucose Calcium Troponin I TSH Thyroxine (T4) - Imaging Impressions Chest X-Ray 05/06/18 00:00 CONCLUSION: 1. No acute abnormality or significant interval change. Cervical Spine CT 05/06/18 16:06 CONCLUSION: 1. No acute fracture or subluxation. 2. Degenerative spondylosis of the cervical spine, as above. 3. Multiple subcentimeter left thyroid nodules. Assessment and Plan - Assessment (1) Syncope Code(s): R55 - Syncope and collapse Status: Acute Plan: 83-year-old female patient with past medical history of Alzheimer's dementia, atrial fibrillation on Coumadin, Schatzki's ring, hyperlipidemia, hypothyroidism , hypertension and GERD. Patient presented to the today after having a syncopal episode while at the grocery store. Patient states she was loading her car with groceries when she passed out. She denies any preceding symptoms. She denies any headache, dizziness, shortness of breath or palpitations. She is unsure whether she struck her head or not. The patient denies any previous episodes like this in the past. There are no other complaints at the time of my examination. When paramedics arrived, they found her to be in atrial fibrillation with rapid ventricular response. Heart rate was in the 130s. Syncopal episode likely related to atrial fibrillation RVR EKG on admission reveals atrial fibrillation with RVR at a rate of 104 Outpatient 2D echocardiogram May 2017 reviewed and reveals normal left ventricular size. Wall thickness is measured at the upper limits of normal. The left ventricular systolic function is normal with an estimated ejection fraction in the range of 60-65%. Doppler parameters are consistent with a pseudonormal left ventricular filling pattern with concomitant abnormal relaxation and increased filling pressures (grade 2 diastolic dysfunction). Left atrial size is mildly dilated. Mild thickening of the mitral valve leaflets. Mild mitral annular calcification. Mild to moderate mitral valve regurgitation. Structurally normal tricuspid valve. There is mild tricuspid valve regurgitation. Estimated pulmonary arterial pressure is 26.2 mm per mercury. Normal estimated pulmonary pressures cardiology eval today PT. if stable possible dc home later today arrange 24hr holter resume coumadin for dc cont current meds. Abrasion R upper arm Consult wound care Alzheimer's dementia Continue patient Aricept 5 mg p.o. daily, Namenda 10 mg daily and alprazolam 0.5 mg BID Hyperlipidemia Continue home atorvastatin 20 mg p.o. daily hypothyroidism Continue home levothyroxine 75 mcg daily Check TSH hypertension Continue patient's home amlodipine 2.5 mg p.o. daily, losartan 100 mg p.o. daily GERD Continue patient's home omeprazole 20 mg p.o. daily DVT prophylaxis awaiting INR patient normally takes Coumadin at home (2) Atrial fibrillation with rapid ventricular response Code(s): I48.91 - Unspecified atrial fibrillation Status: Acute (1) Syncope Qualifiers: Syncope type: unspecified Qualified Code(s): R55 - Syncope and collapse
[2018-05-07] MEDS: amLODIPine 5 MG Tablet PO SCH (08:42)
[2018-05-07] MEDS: Potassium Chloride 10 MEQ ER Capsule PO SCH ×3 (08:43→17:34)
[2018-05-07] MEDS: ALPRAZolam 0.5 MG Tablet PO SCH ×2 (08:43→21:13)
[2018-05-07] MEDS: Pantoprazole Sodium 20 MG DR Tablet PO SCH (08:43)
[2018-05-07] MEDS ORDERED: Non-Formulary Drug (Amlodipine [Amlodipine] 2.5 MG) PO SCH (09:00)
[2018-05-07] MEDS ORDERED: Non-Formulary Drug (Losartan [Losartan] 100 MG) PO SCH (09:00)
[2018-05-07 14:46] LABS: INR 3.2 Ratio
--- NOTE | 2018-05-07 15:38 | ECHRPT ---
Indication: ATRIAL FIB CONCLUSIONS Normal sinus rhythm throughout study. The left ventricular systolic function is normal with an estimated ejection fraction in the range of 60-65%. Normal left ventricular size. Wall thickness is normal. No regional wall motion abnormalities are present. There is trace tricuspid valve regurgitation. The estimated pulmonary arterial pressure is 23.1 mmHg. BP: / HR: Rhythm: Sinus MEASUREMENTS (Male / Female) Normal Values Technical Quality:Good 2D ECHO LV Diastolic Diameter PLAX 4.4 cm 4.2 - 5.9 / 3.9 - 5.3 cm LV Systolic Diameter PLAX 3.1 cm IVS Diastolic Thickness 0.9 cm 0.6 - 1.0 / 0.6 - 0.9 cm LVPW Diastolic Thickness 0.8 cm 0.6 - 1.0 / 0.6 - 0.9 cm LV Relative Wall Thickness 0.4 RV Internal Dim ED PLAX 3.2 cm LVOT Diameter 1.6 cm LA Systolic Diameter LX 3.8 cm 3.0 - 4.0 / 2.7 - 3.8 cm LV Ejection Fraction MOD 4C 68.1 % LV Ejection Fraction 4C AL 69.6 % M-MODE Aortic Root Diameter MM 1.9 cm LA Systolic Diameter MM 3.6 cm LA Ao Ratio MM 1.9 AV Cusp Separation MM 1.5 cm DOPPLER AV Peak Velocity 134.0 cm/s AV Peak Gradient 7.2 mmHg LVOT Peak Velocity 93.8 cm/s LVOT Peak Gradient 3.5 mmHg AV Area Cont Eq pk 1.4 cm MV Area PHT 3.9 cm Mitral E Point Velocity 95.8 cm/s Mitral A Point Velocity 78.0 cm/s Mitral E to A Ratio 1.2 LV E' Lateral Velocity 8.1 cm/s Mitral E to LV E' Lateral Ratio 11.8 LV E' Septal Velocity 6.6 cm/s Mitral E to LV E' Septal Ratio 14.4 TR Peak Velocity 181.0 cm/s TR Peak Gradient 13.1 mmHg Right Atrial Pressure 10.0 mmHg Pulmonary Artery Systolic Pressu 23.1 mmHg Right Ventricular Systolic Press 23.1 mmHg PV Peak Velocity 86.9 cm/s PV Peak Gradient 3.0 mmHg FINDINGS LEFT VENTRICLE The left ventricular systolic function is normal with an estimated ejection fraction in the range of 60-65%. Normal left ventricular size. Wall thickness is normal. No regional wall motion abnormalities are present. RIGHT VENTRICLE Normal right ventricular size and systolic function. LEFT ATRIUM The left atrial size is normal. RIGHT ATRIUM The right atrial size is normal. ATRIAL SEPTUM Normal atrial septal thickness without atrial level shunting by limited color doppler interrogation. AORTA The aortic root and proximal ascending aorta are normal in size on limited imaging. MITRAL VALVE Structurally normal mitral valve. No mitral valve stenosis or regurgitation. AORTIC VALVE Trileaflet aortic valve. No aortic valve stenosis or regurgitation. TRICUSPID VALVE Structurally normal tricuspid valve. There is trace tricuspid valve regurgitation. The estimated pulmonary arterial pressure is 23.1 mmHg. PULMONARY VALVE No pulmonary valve regurgitation or stenosis. VESSELS The inferior vena cava is normal in size. PERICARDIUM No pericardial effusion. Macario Hogan (Electronically Signed) Final Date:07 May 2018 15:37
--- NOTE | 2018-05-07 16:31 | ECG ---
Date Performed: 05/06/2018 Time Performed: 15:50:50 PTAGE: 83 years EKG: ATRIAL FIBRILLATION WITH RAPID VENTRICULAR RESPONSE ABNORMAL RHYTHM ECG PREVIOUS TRACING : 04/17/2018 14.52 Compared to previous tracing, atrial fibrillation is ne. Cl inical correlation is recommended DOCTOR: Shemar Sorto Interpretating Date/Time 05/07/2018 16:29:41
[2018-05-08 05:24] LABS: INR 2.9 Ratio; Prothrombin Time 29.7 sec (9.8-11.6)
[2018-05-08] MEDS: Propafenone 150 MG Tablet PO SCH (06:11)
[2018-05-08] MEDS: Levothyroxine 75 MCG Tablet PO SCH (06:11)
--- NOTE | 2018-05-08 08:55 | P.PNIM ---
Subjective Interval history: pt feels well. wants to go home Physical Exam Vital signs: Vital Signs 05/07/18 09:00 05/07/18 09:20 05/07/18 10:00 Temperature 98.6 F Pulse Rate 66 66 64 Respiratory Rate 18 Blood Pressure 126/64 Pulse Oximetry 98 05/07/18 11:00 05/07/18 12:00 05/07/18 13:00 Temperature 98.9 F Pulse Rate 58 L 60 56 L Respiratory Rate 16 Blood Pressure 116/60 Pulse Oximetry 98 05/07/18 14:00 05/07/18 15:00 05/07/18 16:00 Temperature 97.8 F Pulse Rate 70 58 L 62 Respiratory Rate 18 Blood Pressure 112/58 L Pulse Oximetry 100 05/07/18 17:00 05/07/18 20:00 05/07/18 21:00 Temperature 97.8 F Pulse Rate 66 60 58 L Respiratory Rate 18 Blood Pressure 143/76 H Pulse Oximetry 98 05/07/18 22:00 05/07/18 23:00 05/08/18 00:00 Temperature 97.7 F Pulse Rate 61 62 58 L Respiratory Rate 16 Blood Pressure 125/60 Pulse Oximetry 98 05/08/18 01:00 05/08/18 02:00 05/08/18 04:00 Temperature 98.0 F Pulse Rate 57 L 54 L 70 Respiratory Rate 16 Blood Pressure 117/59 L Pulse Oximetry 99 05/08/18 06:00 Temperature Pulse Rate 83 Respiratory Rate Blood Pressure Pulse Oximetry Intake & Output 05/07/18 05/08/18 05/08/18 18:59 06:59 18:59 Intake Total 720 / 720 240 / 240 Output Total 900 / 900 275 / 275 Balance -180 / -180 -35 / -35 Intake: Oral 720 / 720 240 / 240 Output: Urine 900 / 900 275 / 275 Other: Date of Last Bowel Movement 05/05/18 05/05/18 heart reg lung cta abd s/nt ext no edema Results - Labs CBC & Chem 7: 05/06/18 16:23 05/06/18 16:23 Laboratory Results - last 24 hr 05/07/18 05/08/18 14:02 04:58 PT 32.0 H 29.7 H INR 3.2 2.9 Assessment and Plan - Assessment (1) Syncope Code(s): R55 - Syncope and collapse Status: Acute Plan: 83-year-old female patient with past medical history of Alzheimer's dementia, atrial fibrillation on Coumadin, Schatzki's ring, hyperlipidemia, hypothyroidism , hypertension and GERD. Patient presented to the today after having a syncopal episode while at the grocery store. Patient states she was loading her car with groceries when she passed out. She denies any preceding symptoms. She denies any headache, dizziness, shortness of breath or palpitations. She is unsure whether she struck her head or not. The patient denies any previous episodes like this in the past. There are no other complaints at the time of my examination. When paramedics arrived, they found her to be in atrial fibrillation with rapid ventricular response. Heart rate was in the 130s. Syncopal episode likely related to atrial fibrillation RVR EKG on admission reveals atrial fibrillation with RVR at a rate of 104 Outpatient 2D echocardiogram May 2017 reviewed and reveals normal left ventricular size. Wall thickness is measured at the upper limits of normal. The left ventricular systolic function is normal with an estimated ejection fraction in the range of 60-65%. Doppler parameters are consistent with a pseudonormal left ventricular filling pattern with concomitant abnormal relaxation and increased filling pressures (grade 2 diastolic dysfunction). Left atrial size is mildly dilated. Mild thickening of the mitral valve leaflets. Mild mitral annular calcification. Mild to moderate mitral valve regurgitation. Structurally normal tricuspid valve. There is mild tricuspid valve regurgitation. Estimated pulmonary arterial pressure is 26.2 mm per mercury. Normal estimated pulmonary pressures cardiology evaluated and clear for dc on same medications dc home later today after holter monitor completed and f/u closely with cardiolgy dc with hhc/pt eval resume coumadin for dc cont current meds. Abrasion R upper arm Alzheimer's dementia Continue patient Aricept 5 mg p.o. daily, Namenda 10 mg daily and alprazolam 0.5 mg BID Hyperlipidemia Continue home atorvastatin 20 mg p.o. daily hypothyroidism Continue home levothyroxine 75 mcg daily hypertension Continue patient's home amlodipine 2.5 mg p.o. daily, losartan 100 mg p.o. daily GERD Continue patient's home omeprazole 20 mg p.o. daily (2) Atrial fibrillation with rapid ventricular response Code(s): I48.91 - Unspecified atrial fibrillation Status: Acute (1) Syncope Qualifiers: Syncope type: unspecified Qualified Code(s): R55 - Syncope and collapse
--- NOTE | 2018-05-08 08:59 | P.DCO ---
- Diagnosis (1) Atrial fibrillation with rapid ventricular response Status: Acute (2) Syncope Status: Acute - Physical Therapy Order: Evaluate and treat - Home Health Nursing Order: Medical education, Signs/symptoms of disease process, Medication education-adverse effect, Nursing assessment with vital signs - Case Management Consult Yes - Certification I have seen patient Amanda Olvera on 05/08/18. My clinical findings support the need for the requested home health care services because: Need for psychosocial assistance, Impaired cognition/judgement I certify that my clinical findings support that this patient is homebound because: Impaired cognitive ability/safety, Unsteady gait/balance, Need for psychosocial assistance (2) Syncope Qualifiers: Syncope type: unspecified Qualified Code(s): R55 - Syncope and collapse
[2018-05-08 09:03] VITALS: BP 119/75; PULSE 91; RESP 18; TEMP 98; O2SAT 94
[2018-05-08] MEDS: ALPRAZolam 0.5 MG Tablet PO SCH (09:11)
[2018-05-08] MEDS: Pantoprazole Sodium 20 MG DR Tablet PO SCH (09:11)
[2018-05-08] MEDS: amLODIPine 5 MG Tablet PO SCH (09:14)
[2018-05-08] MEDS: Potassium Chloride 10 MEQ ER Capsule PO SCH (10:37)
--- NOTE | 2018-05-08 15:53 | HM ---
Date Performed: 05/07/2018 Time Performed: 11:55:00 HOOKUP DATE: 05/07/18 11:55:00 AM Mon ANALYSIS START TIME: 05/07/2018 12:00:00 PM ANALYSIS END TIME: 05/08/2018 9:44:32 AM PATIENT AGE: 83 PATIENT HEIGHT PATIENT WEIGHT DRUG LIST PATIENT DIAGNOSIS: afib TEST NARRATIVE: The patient's average heart rate was 71 BPM. Heart rates greater than 120 B PM were noted 6% of the time. Heart rates less than 50 BPM were noted < 1% of the time. 3 pauses exceeding 2.0 seconds were noted. The longest pause of 5.0 seconds occurred at 05:55:43 AM Tue. 52 ventricular ectopics, which represented < 1% of the total beat count, were noted. The highest ve ntricular ectopic frequency occurred from 09:00 AM to 10:00 AM Tue. During this time 48 VE(s) occurr ed. Ventricular ectopics were observed as 6 isolated beat(s), as 7 couplet(s) and as 8 run(s). 2 34 supraventricular ectopics, which represented < 1% of the total beat count, were noted. The highes t supraventricular ectopic frequency occurred from 04:00 AM to 05:00 AM Tue. During this time 80 SVE (s) occurred. No episodes of ST depression (defined as -1.0 mm or more) were noted in channel 1. No episodes of ST depression (defined as -1.0 mm or more) were noted in channel 2. No episodes of S T depression (defined as -1.0 mm or more) were noted in channel 3. TEST INTERPRETATION: Minimum heart rate 50, maximum heart rate 190, average 71 bpm. Underlying r hythm is normal Sinus rhythm with PVCs. There were some 2.3 second pauses noted, longest pause was 5 seconds. The patient was als o noted to have atrial fibrillation with RVR. There were some short runs of nonsustained ventricular tachycardia, multiple runs of 4-5 beats in length. CONCLUSION: 1. Malcom-tachy syndrome with 5 second pauses 2. 5 second pause. 3. Atrial fibrillation with rapid ventricular response and short runs of n onsustained ventricular versus atrial fibrillation with aberrancy. Signed by : Kourtney Jack
--- NOTE | 2018-05-16 15:38 | P.DS ---
Date of admission: 05/06/18 18:30 Primary care physician: Ancelmo Mcclelland MD Brief History from admission: 83-year-old female patient with past medical history Alzheimer's disease, atrial fibrillation on Coumadin, Schatzki's ring, hyperlipoidemia, hypothyroidism, hypertension and GERD. Patient presented to the today after having a syncopal episode while at the grocery store. Patient states she was loading her car with groceries when she passed out. She denies any preceding symptoms. She denies any headache, dizziness, shortness of breath or palpitations. She is unsure whether she struck her head or not. The patient denies any previous episodes like this in the past. There are no other complaints at the time of my examination. When paramedics arrived, they found her to be in atrial fibrillation with rapid ventricular response. Heart rate was in the 130s. Patient reports pain right upper extremity. EKG on admission reveals atrial fibrillation with RVR at a rate of 104 Outpatient 2D echocardiogram May 2017 reviewed and reveals normal left ventricular size. Wall thickness is measured at the upper limits of normal. The left ventricular systolic function is normal with an estimated ejection fraction in the range of 60-65%. Doppler parameters are consistent with a pseudonormal left ventricular filling pattern with concomitant abnormal relaxation and increased filling pressures (grade 2 diastolic dysfunction). Left atrial size is mildly dilated. Mild thickening of the mitral valve leaflets. Mild mitral annular calcification. Mild to moderate mitral valve regurgitation. Structurally normal tricuspid valve. There is mild tricuspid valve regurgitation. Estimated pulmonary arterial pressure is 26.2 mm per mercury. Normal estimated pulmonary pressures. 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 Patient presented to the today after having a syncopal episode while at the grocery store. Patient states she was loading her car with groceries when she passed out. She denies any preceding symptoms. She denies any headache, dizziness, shortness of breath or palpitations. She is unsure whether she struck her head or not. The patient denies any previous episodes like this in the past. There are no other complaints at the time of my examination. When paramedics arrived, they found her to be in atrial fibrillation with rapid ventricular response. Heart rate was in the 130s. Syncopal episode likely related to atrial fibrillation RVR EKG on admission reveals atrial fibrillation with RVR at a rate of 104 Outpatient 2D echocardiogram May 2017 reviewed and reveals normal left ventricular size. Wall thickness is measured at the upper limits of normal. The left ventricular systolic function is normal with an estimated ejection fraction in the range of 60-65%. Doppler parameters are consistent with a pseudonormal left ventricular filling pattern with concomitant abnormal relaxation and increased filling pressures (grade 2 diastolic dysfunction). Left atrial size is mildly dilated. Mild thickening of the mitral valve leaflets. Mild mitral annular calcification. Mild to moderate mitral valve regurgitation. Structurally normal tricuspid valve. There is mild tricuspid valve regurgitation. Estimated pulmonary arterial pressure is 26.2 mm per mercury. Normal estimated pulmonary pressures cardiology evaluated and clear for dc on same medications dc home later today after holter monitor completed and f/u closely with cardiolgy dc with hhc/pt eval resume coumadin for dc cont current meds. Abrasion R upper arm Alzheimer's dementia Continue patient Aricept 5 mg p.o. daily, Namenda 10 mg daily and alprazolam 0.5 mg BID Hyperlipidemia Continue home atorvastatin 20 mg p.o. daily hypothyroidism Continue home levothyroxine 75 mcg daily hypertension Continue patient's home amlodipine 2.5 mg p.o. daily, losartan 100 mg p.o. daily GERD Continue patient's home omeprazole 20 mg p.o. daily (2) Atrial fibrillation with rapid ventricular response Code(s): I48.91 - Unspecified atrial fibrillation Status: Acute - Time Spent with Patient Total time spent providing and/or coordinating discharge services: Greater than 30 minutes - Quality: VTE Deep Vein Thrombosis/Pulmonary Embolism Present on Admission: No Results Procedures completed during hospitalization: none - Impressions ITS Impressions Chest X-Ray 05/06/18 00:00 CONCLUSION: 1. No acute abnormality or significant interval change. Cervical Spine CT 05/06/18 16:06 CONCLUSION: 1. No acute fracture or subluxation. 2. Degenerative spondylosis of the cervical spine, as above. 3. Multiple subcentimeter left thyroid nodules. Discharge Plan - Discharge Disposition Patient Disposition: /Home Health Service - Discharge Condition Condition: Stable - Discharge Order Discharge Orders: Discharge Order (Routine); Ordered 05/08/18 Ordered By: Osei Ramirez - Discharge Details Anticipated Discharge Date: 05/08/18 Discharge Comment: dc pt home today once her 24hr holter monitor complete and removed. - Physicians Team Primary Care Provider: Ancelmo Mcclelland Attending Provider: Sean Larson Other Providers: Macario Hogan, DO ; [facility]
== END 2018-05-08 10:49 | disposition home health service (06) ==
LOC: NEPE 15:36 → NEDA 18:30 → HCIS 22:55 → NEDA 22:55 → HCIS 05-08 09:16
PROVIDERS: ADMIT Hospitalist; ATTEND Hospitalist

== ENCOUNTER 2018-05-22 16:50 | Inpatient (IN) ==
--- NOTE | 2018-05-22 17:43 | ED ---
HPI General Chief Complaint: Arrhythmia / Palpitations Stated Complaint: Cardiac Time Seen by Provider: 05/22/18 17:19 History of Present Illness HPI narrative: Patient presents to the emergency department stating that my "atrial fib is acting up." States that she saw Dr. Worrell her system engineer on yesterday and they placed on a Holter monitor to be worn for 12 hours, which she returned at noon today. States she was sent to the ER by home health care. She denies chest pain, shortness of breath, nausea, vomiting, dysuria, fever, chills, but reports palpitations in her chest fluttering. Related Data Home Medications Medication Instructions Recorded Confirmed alprazolam 0.5 mg PO BID 04/17/18 05/22/18 amlodipine 2.5 mg PO DAILY 04/17/18 05/22/18 atorvastatin 20 mg PO DAILY 04/17/18 05/22/18 donepezil 5 mg PO DAILY 04/17/18 05/22/18 levothyroxine 75 mcg PO DAILY 04/17/18 05/22/18 losartan 100 mg PO DAILY 04/17/18 05/22/18 memantine 10 mg PO DAILY 04/17/18 05/22/18 omeprazole 20 mg PO DAILY 04/17/18 05/22/18 potassium chloride 10 meq PO TID 04/17/18 05/22/18 propafenone 150 mg PO Q8H 04/17/18 05/22/18 warfarin 4 mg PO DAILY 04/17/18 05/22/18 Allergies Allergy/AdvReac Type Severity Reaction Status Date / Time adhesive Allergy Severe SKIN BREAK Verified 04/17/18 13:46 amiodarone Allergy Severe vision Verified 04/17/18 13:46 problems codeine Allergy Severe Rash Verified 04/17/18 13:46 penicillin G Allergy Severe Rash Verified 04/17/18 13:46 Sulfa (Sulfonamide Allergy Severe Rash Verified 04/17/18 13:46 Antibiotics) PAPER TAPE AdvReac Severe SKIN BREAK Uncoded 04/17/18 13:46 Review of Systems ROS: all other systems reviewed are negative [facility] Social History Social History Substance History: No History of Abuse Second Hand Smoke Exposure: No Smoking Status: Never smoker How Often Do You Have a Drink Containing Alcohol: Monthly or less Immunization History Tetanus Immunization: Unsure Exam Narrative Exam Narrative: GENERAL: No acute distress. SKIN: Focused skin assessment warm/dry. HEAD: Atraumatic. Normocephalic. EYES: Pupils equal and round. No scleral icterus. No injection or drainage. ENT: No nasal bleeding or discharge. Mucous membranes pink and moist. NECK: Trachea midline. No JVD. CARDIOVASCULAR: Irregularly irregular. No murmur appreciated. RESPIRATORY: No accessory muscle use. Clear to auscultation. Breath sounds equal bilaterally. GASTROINTESTINAL: Abdomen soft, non-tender, nondistended. Hepatic and splenic margins not palpable. MUSCULOSKELETAL: No obvious deformities. No clubbing. No cyanosis. No edema. NEUROLOGICAL: Awake and alert. No obvious cranial nerve deficits. Motor grossly within normal limits. Normal speech. PSYCHIATRIC: Appropriate mood and affect; insight and judgment normal. Course Initial Documented Vital Signs Temperature 98.6 F 05/22/18 17:06 Pulse Rate 127 H 05/22/18 17:06 Respiratory Rate 20 05/22/18 17:06 Blood Pressure 157/82 H 05/22/18 17:06 Pulse Oximetry 100 05/22/18 17:06 Last Documented Vital Signs Temperature 98.6 F 05/22/18 17:06 Pulse Rate 94 H 05/22/18 18:48 Respiratory Rate 18 05/22/18 18:48 Blood Pressure 115/94 H 05/22/18 18:48 Pulse Oximetry 98 05/22/18 18:48 Medical Decision Making [facility] Narrative Medical decision making narrative: Patient with a known history of atrial fib presents with palpitations. Patient placed on interactive web developer, continuous pulse ox, and IV access obtained. EKG, chest x-ray, labs ordered. EKG appears to be a [facility] of with RVR. Patient given 15 mg IV diltiazem. 1829: Patient given 15mg IV diltiazem and HR decreased to 80s-low 100s. Awaiting lab and CXR results. 1912: Patient given 500mg po Calcium carb. 1933: Patient admitted, u/a pending at time of admission. 1953: U/A + trace LE. Medical Screen Exam Complete: Yes Emergency Medical Condition: Yes Lab Data Result diagrams: 05/22/18 17:20 05/22/18 17:20 Lab Results 05/22/18 05/22/18 05/22/18 Range/Units 17:20 17:20 17:20 WBC 6.7 (4.0-11.0) th/mm3 RBC 3.48 L (4.00-5.30) mil/mm3 Hgb 9.5 L (11.6-15.3) gm/dL Hct 27.9 L (35.0-46.0) % MCV 80.3 (80.0-100.0) fL MCH 27.2 (27.0-34.0) pg MCHC 33.9 (32.0-36.0) % RDW 16.9 (11.6-17.2) % Plt Count 272 (150-450) th/mm3 MPV 8.9 (7.0-11.0) fL Neut % (Auto) 70.1 H (16.0-70.0) % Lymph % (Auto) 22.4 (9.0-44.0) % [place] % (Auto) 6.3 (0.0-8.0) % Eos % (Auto) 0.2 (0.0-4.0) % Baso % (Auto) 1.0 (0.0-2.0) % Neut # (Auto) 4.7 (1.8-7.7) th/mm3 Lymph # (Auto) 1.5 (1.0-4.8) th/mm3 [place] # (Auto) 0.4 (0.0-0.9) th/mm3 Eos # (Auto) 0.0 (0.0-0.4) th/mm3 Baso # (Auto) 0.1 (0.0-0.2) th/mm3 WBC Differential . Differential Comment Auto diff final PT 24.7 H (9.8-11.6) sec INR 2.4 Ratio APTT 32.0 H (24.3-30.1) sec Sodium 140 (136-145) meq/L Potassium 4.1 (3.5-5.1) meq/L Chloride 110 H (98-107) meq/L Carbon Dioxide 24.6 (21.0-32.0) meq/L Anion Gap 5 (5-15) meq/L BUN 21 H (7-18) mg/dL Creatinine 1.14 H (0.50-1.00) mg/dL Estimated GFR 46 L (>89) mL/min Random Glucose 102 (74-106) mg/dL Calcium 7.3 L* (8.5-10.1) mg/dL Prot Corrected Calcium 8.0 L (8.5-10.1) mg/dL Magnesium 2.2 (1.5-2.5) mg/dL Total Bilirubin 0.2 (0.2-1.0) mg/dL AST 23 (15-37) U/L ALT 38 (10-53) U/L Alkaline Phosphatase 75 (45-117) U/L Troponin I Less than 0.02 L (0.02-0.05) ng/mL Total Protein 5.8 L (6.4-8.2) g/dL Albumin 3.2 L (3.4-5.0) g/dL TSH 1.580 (0.358-3.740) uIU/mL Free T4 1.22 (0.76-1.46) ng/dL Urine Color (Yellw/Straw) Urine Clarity (Clear) Urine pH (5.0-8.5) Ur Specific Chest[place] (1.002-1.035) Urine Protein (Neg-Trace) mg/dL Urine Glucose (UA) (Negative) mg/dL Urine Ketones (Negative) mg/dL Urine Occult Blood (Negative) Urine Nitrate (Negative) Urine Bilirubin (Negative) Urine Urobilinogen (Less than 2) mg/dL Ur Leukocyte Esterase (Negative) Urine RBC (0-3) /hpf Urine WBC (0-5) /hpf Ur Squamous Epith Cells (0-5) /hpf Hyaline Casts (0-3) /lpf Granular Casts (None) /lpf Urine Mucus (Occasional) /lpf Micro UA Comment Ur Microscopic Review Urine Culture Comments 05/22/18 Range/Units 18:05 WBC (4.0-11.0) th/mm3 RBC (4.00-5.30) mil/mm3 Hgb (11.6-15.3) gm/dL Hct (35.0-46.0) % MCV (80.0-100.0) fL MCH (27.0-34.0) pg MCHC (32.0-36.0) % RDW (11.6-17.2) % Plt Count (150-450) th/mm3 MPV (7.0-11.0) fL Neut % (Auto) (16.0-70.0) % Lymph % (Auto) (9.0-44.0) % [place] % (Auto) (0.0-8.0) % Eos % (Auto) (0.0-4.0) % Baso % (Auto) (0.0-2.0) % Neut # (Auto) (1.8-7.7) th/mm3 Lymph # (Auto) (1.0-4.8) th/mm3 [place] # (Auto) (0.0-0.9) th/mm3 Eos # (Auto) (0.0-0.4) th/mm3 Baso # (Auto) (0.0-0.2) th/mm3 WBC Differential Differential Comment PT (9.8-11.6) sec INR Ratio APTT (24.3-30.1) sec Sodium (136-145) meq/L Potassium (3.5-5.1) meq/L Chloride (98-107) meq/L Carbon Dioxide (21.0-32.0) meq/L Anion Gap (5-15) meq/L BUN (7-18) mg/dL Creatinine (0.50-1.00) mg/dL Estimated GFR (>89) mL/min Random Glucose (74-106) mg/dL Calcium (8.5-10.1) mg/dL Prot Corrected Calcium (8.5-10.1) mg/dL Magnesium (1.5-2.5) mg/dL Total Bilirubin (0.2-1.0) mg/dL AST (15-37) U/L ALT (10-53) U/L Alkaline Phosphatase (45-117) U/L Troponin I (0.02-0.05) ng/mL Total Protein (6.4-8.2) g/dL Albumin (3.4-5.0) g/dL TSH (0.358-3.740) uIU/mL Free T4 (0.76-1.46) ng/dL Urine Color Yellow (Yellw/Straw) Urine Clarity Clear (Clear) Urine pH 6.0 (5.0-8.5) Ur Specific Chestnut 1.008 (1.002-1.035) Urine Protein Negative (Neg-Trace) mg/dL Urine Glucose (UA) Negative (Negative) mg/dL Urine Ketones Negative (Negative) mg/dL Urine Occult Blood Negative (Negative) Urine Nitrate Negative (Negative) Urine Bilirubin Negative (Negative) Urine Urobilinogen Less than 2 (Less than 2) mg/dL Ur Leukocyte Esterase Trace H (Negative) Urine RBC 1 (0-3) /hpf Urine WBC 1 (0-5) /hpf Ur Squamous Epith Cells <1 (0-5) /hpf Hyaline Casts 19 (0-3) /lpf Granular Casts 8 (None) /lpf Urine Mucus Few H (Occasional) /lpf Micro UA Comment Culture not ind Ur Microscopic Review Not Reportable Urine Culture Comments Culture not ind Imaging Data Radiologist's impression: Chest X-Ray 05/22/18 17:30 CONCLUSION: No active disease. ECG Data Attestation: I personally reviewed and interpreted this ECG as follows: (Atrial flutter, rate 126, left axis deviation, QTC 404,) Discharge Plan Discharge Disposition Patient Disposition: 30 Still Patient Discharge Condition Condition: Stable Discharge Details Diagnosis: Atrial flutter with rapid ventricular response Physicians Team ED Provider: Nimo Butts Primary Care Provider: UNKNOWN, Attending Provider: Osei Ramirez Status ED Status: Admitted Observation Patient
[2018-05-22 17:50] LABS: Baso # (Auto) 0.1 th/mm3 (0.0-0.2); Eos % (Auto) 0.2 % (0.0-4.0); Hematocrit 27.9 % (35.0-46.0); Hemoglobin 9.5 gm/dL (11.6-15.3); Lymph # (Auto) 1.5 th/mm3 (1.0-4.8); Lymph % (Auto) 22.4 % (9.0-44.0); Mean Corpuscular HGB Conc 33.9 % (32.0-36.0); Mean Corpuscular Hemoglobin 27.2 pg (27.0-34.0); Mean Corpuscular Volume 80.3 fL (80.0-100.0); Mean Platelet Volume 8.9 fL (7.0-11.0); Mono # (Auto) 0.4 th/mm3 (0.0-0.9); Mono % (Auto) 6.3 % (0.0-8.0); Neut # (Auto) 4.7 th/mm3 (1.8-7.7); Neut % (Auto) 70.1 % (16.0-70.0); Platelet Count 272 th/mm3 (150-450); Red Blood Count 3.48 mil/mm3 (4.00-5.30); Red Cell Distribution Width 16.9 % (11.6-17.2); White Blood Count 6.7 th/mm3 (4.0-11.0)
[2018-05-22 17:59] LABS: INR 2.4 Ratio; Prothrombin Time 24.7 sec (9.8-11.6)
[2018-05-22 18:32] LABS: Alanine Aminotransferase 38 U/L (10-53); Albumin 3.2 g/dL (3.4-5.0); Alkaline Phosphatase 75 U/L (45-117); Anion Gap 5 meq/L (5-15); Aspartate Aminotransferase 23 U/L (15-37); Blood Urea Nitrogen 21 mg/dL (7-18); Calcium 7.3 mg/dL (8.5-10.1); Carbon Dioxide 24.6 meq/L (21.0-32.0); Chloride 110 meq/L (98-107); Free T4 (Free Thyroxine) 1.22 ng/dL (0.76-1.46); Glomerular Filtration Rate 46 mL/min (>89); Glucose,Random 102 mg/dL (74-106); Magnesium 2.2 mg/dL (1.5-2.5); Potassium 4.1 meq/L (3.5-5.1); Sodium 140 meq/L (136-145); Total Protein 5.8 g/dL (6.4-8.2)
--- NOTE | 2018-05-22 18:47 | XR ---
EXAM DATE: 05/22/2018 6:19 PM EDT AGE/SEX: 83 years / Female INDICATIONS: Chest pain. CLINICAL DATA: This is the patient's initial encounter. Patient reports that signs and symptoms have been present for 1 day and indicates a pain score of 5/10. MEDICAL/SURGICAL HISTORY: . Gastroesophageal reflux disease. Dementia. Hypothyroidism. Hyperte nsion, Atrial Fib. Hysterectomy. COMPARISON: [facility] [place] 1V SINGLE AP, 05/06/2018. . FINDINGS: A single AP view of the chest demonstrates the lungs to be symmetrically aerated without evidence of mass, infiltrate or effusion. The cardiomediastinal contours are unremarkable. Osseous structures a re intact. CONCLUSION: No active disease. Electronically signed by: Isidro Driscoll MD 05/22/2018 6:46 PM EDT
[2018-05-22 19:06] LABS: Bilirubin,Urine Negative (Negative); Clarity,Urine Clear (Clear); Color,Urine Yellow (Yellw/Straw); Glucose,Urine (UA) Negative (Negative); Hyaline Casts,Urine 19 /lpf (0-3); Leukocyte Esterase,Urine Trace (Negative); Mucus,Urine Few /lpf (Occasional); Nitrite,Urine Negative (Negative); Specific Gravity,Urine 1.008 (1.002-1.035); Squamous Epithelial Cell,Urine <1 /hpf (0-5)
[2018-05-22] MEDS ORDERED: Calcium Carbonate 500 MG Tablet PO ONE (19:12)
--- NOTE | 2018-05-22 20:38 | P.HP ---
History of Present Illness Service: [facility] Adult med Primary Care Physician: Ancelmo Mcclelland MD Chief Complaint: Palpitations, questionable shortness of breath per History of Present Illness: Patient history of A. fib/flutter presents to the emergency department stating that my "atrial fib is acting up." States that she saw Dr. Worrell her post acute care nurse practitioner yesterday and they placed on a Holter monitor to be worn for 12 hours, which she returned at noon today. States she was sent to the ER by home health care since her heart rate was sustaining in the 130s at home and per home health nurse report, patient was short of breath. Patient denies any chest pain and actually says she does not believe she was short of breath but did note that she was having persistent palpitations at home. Her cardiology office was contacted by [facility] and was advised to send the patient to the ER given the protracted tachyarrhythmia. She denies chest pain, shortness of breath, nausea, vomiting, dysuria, fever, chills, but reports palpitations in her chest fluttering. Patient reports she actually feels well now even though her heart rate back up in the 130s. She was given 1 IV bolus of Cardizem in the ER and her heart rate dropped down into the 80s-90s however it is now increased back into the 120s-130s on my exam. Patient has some baseline dementia and is a bit confused about some of her home medications but is otherwise relatively clear on today's date, time and situation leading to her ER visit. We discussed her recent hospital stay which was for a couple of days ending on May 08 for atrial fib issues. She has had recent echocardiogram and cardiac eval. 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 Family medical history: noncontributory Social history: , has 2 adult sons and 2 adult daughters; closest geographically is [place] [facility] [place] Denies tobacco use or illicit drug use Occasionally drinks a glass of wine at night Retired chief human resources officer - Diagnosis (1) Atrial fibrillation with rapid ventricular response (2) Dyslipidemia (3) Dementia (4) Anxiety Review of Systems Constitutional: Reports fatigue Ears, Nose, Mouth, and Throat: Denies abnormal hearing, Denies bleeding gums, Denies bad breath, Denies change in voice, Denies dental pain, Denies difficulty swallowing, Denies dizziness, Denies dry mouth, Denies ear discharge , Denies ear pain, Denies facial pain, Denies headache(s), Denies hearing loss, Denies hoarseness, Denies lip swelling, Denies nosebleed, Denies mouth lesions, Denies mouth pain, Denies nasal congestion, Denies nasal discharge, Denies nasal obstruction, Denies nasal trauma, Denies neck lump, Denies neck pain, Denies nose pain, Denies pain with swallowing, Denies poor balance, Denies post nasal drip, Denies ringing in the ears, Denies sinus pain, Denies sinus pressure , Denies sore throat, Denies throat swelling, Denies tongue swelling, Denies other Cardiovascular: Reports fast heart rate, Reports irregular heart rhythm, Reports rapid, pounding, or irregular heartbeat, Reports shortness of breath, Denies chest pain, Denies chest pain at rest, Denies chest pain with activity, Denies excessive sweating, Denies fainting, Denies foot swelling, Denies generalized swelling, Denies leg pain with activity, Denies leg sores, Denies leg swelling, Denies lightheadedness, Denies radiating jaw, neck or arm pain, Denies shortness of breath with activity, Denies shortness of breath causing sudden awakening, Denies slow heart rate, Denies other Respiratory: Reports shortness of breath, Denies change in phlegm color, Denies chest congestion, Denies cough, Denies coughing up blood, Denies excessive phlegm production, Denies pain on inspiration, Denies pain with cough, Denies shortness of breath with activity, Denies snoring, Denies stridor, Denies wheezing, Denies other Gastrointestinal: Denies abdominal pain, Denies belching, Denies black, tarry stools, Denies bloating, Denies bright, red blood in stools, Denies change in bowel habits, Denies constant urge to pass stool, Denies change in stools, Denies coffee ground vomit, Denies constipation, Denies cramping, Denies difficulty swallowing, Denies excessive passing of gas, Denies feeling full early, Denies heartburn, Denies incontinent of stools, Denies loose stools, Denies nausea, Denies pain with swallowing, Denies vomiting, Denies vomiting blood, Denies other Musculoskeletal: Denies abnormal walking, Denies back pain, Denies body aches, Denies decreased muscle mass, Denies deformity, Denies joint pain, Denies joint swelling, Denies limited joint movement, Denies loss of height, Denies muscle cramps, Denies muscle weakness, Denies neck pain, Denies numbness, Denies radiating pain into limb, Denies stiffness, Denies tingling, Denies other Neurologic: Reports confusion Psychiatric: Reports anxiety, Reports memory loss PMFSH - History History Provided By: Patient, Sheet Metal Welder / EMT - Medical History Medical History: Medical History (Last Reviewed 05/07/18 @ 12:16 by [place] Nicole) GERD (gastroesophageal reflux disease) HTN (hypertension) History of atrial fibrillation History of dementia History of hypothyroidism History of hysterectomy - Social History I have reviewed the patient's Social History: Yes - Tobacco History Second Hand Smoke Exposure: No Smoking Status: Never smoker - Alcohol History How Often Do You Have a Drink Containing Alcohol: 2 to 4 times a month - Substance Use History Substance History: No History of Abuse - Travel History History of Recent Travel: No - Immunization History Tetanus Immunization: Unsure Medications and Allergies Allergies Allergy/AdvReac Type Severity Reaction Status Date / Time adhesive Allergy Severe SKIN BREAK Verified 04/17/18 13:46 amiodarone Allergy Severe vision Verified 04/17/18 13:46 problems codeine Allergy Severe Rash Verified 04/17/18 13:46 penicillin G Allergy Severe Rash Verified 04/17/18 13:46 Sulfa (Sulfonamide Allergy Severe Rash Verified 04/17/18 13:46 Antibiotics) PAPER TAPE AdvReac Severe SKIN BREAK Uncoded 04/17/18 13:46 Home Medications Medication Instructions Recorded Confirmed Type alprazolam 0.5 mg PO BID 04/17/18 05/22/18 History amlodipine 2.5 mg PO DAILY 04/17/18 05/22/18 History atorvastatin 20 mg PO DAILY 04/17/18 05/22/18 History donepezil 5 mg PO DAILY 04/17/18 05/22/18 History levothyroxine 75 mcg PO DAILY 04/17/18 05/22/18 History losartan 100 mg PO DAILY 04/17/18 05/22/18 History memantine 10 mg PO DAILY 04/17/18 05/22/18 History omeprazole 20 mg PO DAILY 04/17/18 05/22/18 History potassium chloride 10 meq PO TID 04/17/18 05/22/18 History propafenone 150 mg PO Q8H 04/17/18 05/22/18 History warfarin 4 mg PO DAILY 04/17/18 05/22/18 History Exam Vital signs: Vital Signs 05/22/18 17:06 05/22/18 17:30 05/22/18 18:48 Temperature 98.6 F Pulse Rate 127 H 88 94 H Respiratory Rate 20 18 18 Blood Pressure 157/82 H 131/81 115/94 H Pulse Oximetry 100 98 98 Intake & Output 05/22/18 05/22/18 05/23/18 06:59 18:59 06:59 Weight 59 kg Narrative: GENERAL: Awake, alert, pleasant. Cooperative with exam. Some baseline dementia but otherwise oriented SKIN: Warm and dry. Few areas of purpura on forearms. HEAD: Atraumatic. Normocephalic. EYES: Pupils equal and round. No scleral icterus. No injection or drainage. ENT: No nasal bleeding or discharge. Mucous membranes pink and moist. NECK: Trachea midline. No JVD. CARDIOVASCULAR: Irregularly irregular with a rate around 130. No significant murmur appreciated. RESPIRATORY: No accessory muscle use. Clear to auscultation. Breath sounds equal bilaterally. GASTROINTESTINAL: Abdomen soft, non-tender, nondistended. Hepatic and splenic margins not palpable. MUSCULOSKELETAL: Extremities without clubbing, cyanosis, or edema. No obvious deformities. NEUROLOGICAL: Awake and alert. No obvious cranial nerve deficits. Motor grossly within normal limits. Five out of 5 muscle strength in the arms and legs. Normal speech. PSYCHIATRIC: Appropriate mood and affect; insight and judgment normal. Results - Labs CBC & Chem 7: 05/22/18 17:20 05/22/18 17:20 Labs: Laboratory Results - last 24 hr 05/22/18 05/22/18 05/22/18 17:20 17:20 17:20 WBC 6.7 RBC 3.48 L Hgb 9.5 L Hct 27.9 L MCV 80.3 MCH 27.2 MCHC 33.9 RDW 16.9 Plt Count 272 MPV 8.9 Neut % (Auto) 70.1 H Lymph % (Auto) 22.4 Stevens % (Auto) 6.3 Eos % (Auto) 0.2 Baso % (Auto) 1.0 Neut # (Auto) 4.7 Lymph # (Auto) 1.5 Stevens # (Auto) 0.4 Eos # (Auto) 0.0 Baso # (Auto) 0.1 WBC Differential . Differential Comment Auto diff final PT 24.7 H INR 2.4 APTT 32.0 H Sodium 140 Potassium 4.1 Chloride 110 H Carbon Dioxide 24.6 Anion Gap 5 BUN 21 H Creatinine 1.14 H Estimated GFR 46 L Random Glucose 102 Calcium 7.3 L* Prot Corrected Calcium 8.0 L Magnesium 2.2 Total Bilirubin 0.2 AST 23 ALT 38 Alkaline Phosphatase 75 Troponin I Less than 0.02 L Total Protein 5.8 L Albumin 3.2 L TSH 1.580 Free T4 1.22 Urine Color Urine Clarity Urine pH Ur Specific [place] Urine Protein Urine Glucose (UA) Urine Ketones Urine Occult Blood Urine Nitrate Urine Bilirubin Urine Urobilinogen Ur Leukocyte Esterase Urine RBC Urine WBC Ur Squamous Epith Cells Hyaline Casts Granular Casts Urine Mucus Micro UA Comment Ur Microscopic Review Urine Culture Comments 05/22/18 18:05 WBC RBC Hgb Hct MCV MCH MCHC RDW Plt Count MPV Neut % (Auto) Lymph % (Auto) Stevens % (Auto) Eos % (Auto) Baso % (Auto) Neut # (Auto) Lymph # (Auto) Stevens # (Auto) Eos # (Auto) Baso # (Auto) WBC Differential Differential Comment PT INR APTT Sodium Potassium Chloride Carbon Dioxide Anion Gap BUN Creatinine Estimated GFR Random Glucose Calcium Prot Corrected Calcium Magnesium Total Bilirubin AST ALT Alkaline Phosphatase Troponin I Total Protein Albumin TSH Free T4 Urine Color Yellow Urine Clarity Clear Urine pH 6.0 Ur Specific [place] 1.008 Urine Protein Negative Urine Glucose (UA) Negative Urine Ketones Negative Urine Occult Blood Negative Urine Nitrate Negative Urine Bilirubin Negative Urine Urobilinogen Less than 2 Ur Leukocyte Esterase Trace H Urine RBC 1 Urine WBC 1 Ur Squamous Epith Cells <1 Hyaline Casts 19 Granular Casts 8 Urine Mucus Few H Micro UA Comment Culture not ind Ur Microscopic Review Not Reportable Urine Culture Comments Culture not ind - Imaging Impressions Chest X-Ray 05/22/18 17:30 CONCLUSION: No active disease. Caprini VTE Risk Assessment Caprini VTE Risk Assessment: Moderate/High Risk (score >= 2) Caprini Risk Assessment Model: Point Value = 1 Point Value = 2 Point Value = 3 Point Value = 5 Age 41-60 Minor surgery BMI > 25 kg/m2 Swollen legs Varicose veins or History of unexplained or recurrent spontaneous Oral contraceptives or hormone replacement Sepsis (< 1 month) Serious lung disease, including pneumonia (< 1 month) Abnormal pulmonary function Acute myocardial infarction Congestive heart failure (< 1 month) History of inflammatory bowel disease Medical patient at bed rest Age 61-74 Arthroscopic surgery Major open surgery (> 45 min) Laparoscopic surgery (> 45 min) Malignancy Confined to bed (> 72 hours) Immobilizing plaster cast Central venous access Age >= 75 History of VTE Family history of VTE Factor V Leiden Prothrombin [id number] Lupus anticoagulant Anticardiolipin antibodies Elevated serum homocysteine Heparin-induced thrombocytopenia Other congenital or acquired thrombophilia Stroke (< 1 month) Elective arthroplasty Hip, pelvis, or leg fracture Acute spinal cord injury (< 1 month) Prophylaxis Regimen: Total Risk Factor Score Risk Level Prophylaxis Regimen 0-1 Low Early ambulation 2 Moderate Order ONE of the following: *Sequential Compression Device (SCD) *Heparin 5000 units SQ BID 3-4 Higher Order ONE of the following medications: *Heparin 5000 units SQ TID *Enoxaparin/Lovenox 40 mg SQ daily (WT < 150 kg, CrCl > 30 mL/min) *Enoxaparin/Lovenox 30 mg SQ daily (WT < 150 kg, CrCl > 10-29 mL/min) *Enoxaparin/Lovenox 30 mg SQ BID (WT < 150 kg, CrCl > 30 mL/min) AND/OR *Sequential Compression Device (SCD) 5 or more Highest Order ONE of the following medications: *Heparin 5000 units SQ TID (Preferred with Epidurals) *Enoxaparin/Lovenox 40 mg SQ daily (WT < 150 kg, CrCl > 30 mL/min) *Enoxaparin/Lovenox 30 mg SQ daily (WT < 150 kg, CrCl > 10-29 mL/min) *Enoxaparin/Lovenox 30 mg SQ BID (WT < 150 kg, CrCl > 30 mL/min) AND *Sequential Compression Device (SCD) Assessment and Plan - Assessment (1) Atrial fibrillation with rapid ventricular response Code(s): I48.91 - Unspecified atrial fibrillation Status: Acute Plan: Recent admission for similar issue. Spine well to bolus of Cardizem peer will give her another IV bolus and place her on short acting p.o. formulation to see how she does. Continue anticoagulation. Recently evaluated by cardiology and had echocardiogram done in the last few weeks. We will not repeat this portion of the workup. INR and TSH at goal. (2) Dyslipidemia Code(s): E78.5 - Hyperlipidemia, unspecified Status: Acute Plan: Continue medication. (3) Dementia Code(s): F03.90 - Unspecified dementia without behavioral disturbance Status: Chronic Plan: Continue home medication. (4) Anxiety Code(s): F41.9 - Anxiety disorder, unspecified Status: Chronic Plan: Continue medication - Plan Code Status: full Discussed Condition With: Patient and ER provider Discharge Planning: Hopefully discharge tomorrow if we can control her heart rate. (3) Dementia Qualifiers: Dementia type: Alzheimer's disease
[2018-05-22] MEDS: ALPRAZolam 0.5 MG Tablet PO SCH (21:17)
[2018-05-22] MEDS: dilTIAZem 30 MG Tablet PO SCH (21:17)
[2018-05-22] MEDS: Propafenone 150 MG Tablet PO SCH (21:17)
[2018-05-23] MEDS: Levothyroxine 75 MCG Tablet PO SCH (05:59)
[2018-05-23] MEDS: Propafenone 150 MG Tablet PO SCH ×3 (05:59→23:00)
[2018-05-23 07:43] LABS: Baso # (Auto) 0.1 th/mm3 (0.0-0.2); Baso % (Auto) 1.1 % (0.0-2.0); Eos % (Auto) 0.8 % (0.0-4.0); Hematocrit 31.8 % (35.0-46.0); Hemoglobin 10.5 gm/dL (11.6-15.3); INR 2.8 Ratio; Lymph # (Auto) 1.8 th/mm3 (1.0-4.8); Lymph % (Auto) 28.2 % (9.0-44.0); Mean Corpuscular HGB Conc 32.9 % (32.0-36.0); Mean Corpuscular Hemoglobin 26.4 pg (27.0-34.0); Mean Corpuscular Volume 80.3 fL (80.0-100.0); Mean Platelet Volume 8.8 fL (7.0-11.0); Mono # (Auto) 0.3 th/mm3 (0.0-0.9); Mono % (Auto) 5.3 % (0.0-8.0); Neut # (Auto) 4.2 th/mm3 (1.8-7.7); Neut % (Auto) 64.6 % (16.0-70.0); Platelet Count 295 th/mm3 (150-450); Prothrombin Time 27.8 sec (9.8-11.6); Red Blood Count 3.95 mil/mm3 (4.00-5.30); Red Cell Distribution Width 17.4 % (11.6-17.2); White Blood Count 6.6 th/mm3 (4.0-11.0)
[2018-05-23 08:05] LABS: Calcium 8.3 mg/dL (8.5-10.1); Carbon Dioxide 28.8 meq/L (21.0-32.0); Potassium 3.7 meq/L (3.5-5.1)
[2018-05-23] MEDS: Potassium Chloride 10 MEQ ER Capsule PO SCH ×3 (08:34→17:48)
[2018-05-23] MEDS: Pantoprazole Sodium 20 MG DR Tablet PO SCH (08:37)
[2018-05-23] MEDS: dilTIAZem 30 MG Tablet PO SCH (08:37)
[2018-05-23] MEDS: ALPRAZolam 0.5 MG Tablet PO SCH ×2 (08:37→21:42)
--- NOTE | 2018-05-23 09:39 | P.PNIM ---
Subjective Interval history: Pt feeling well this morning She has not been up walking around much other than going to bedside commode. Denies any chest pain or SOB Her HR on telemetry has been in the 110-120's overnight. Physical Exam Vital signs: Last Vital Signs Temp 97.7 F 05/23/18 07:43 Pulse 118 H 05/23/18 07:43 Resp 20 05/23/18 07:43 BP 112/70 05/23/18 07:43 Pulse Ox 98 05/23/18 08:15 Narrative: General: NAD, AAOx3, some mild confusion intermittently Chest: CTA Cardiac: Irregularly irregular Abd: +BS, soft, ND/NT Ext: No edema Results Labs CBC & Chem 7: 05/23/18 06:49 05/23/18 06:49 Imaging Chest X-Ray 05/22/18 17:30 CONCLUSION: No active disease. Assessment and Plan Assessment (1) Atrial fibrillation with rapid ventricular response: Code(s): I48.91 - Unspecified atrial fibrillation Status: Acute (2) Dyslipidemia: Code(s): E78.5 - Hyperlipidemia, unspecified Status: Chronic (3) Dementia: Code(s): F03.90 - Unspecified dementia without behavioral disturbance Status: Chronic (4) Anxiety: Code(s): F41.9 - Anxiety disorder, unspecified Status: Chronic Plan A. fib with RVR - Pt is an 83 y/o female with Alzheimer's dementia, atrial fibrillation on Coumadin, Schatzki's ring, hyperlipidemia, hypothyroidism, hypertension and GERD. She was recently admitted to [facility] [place] [facility] for a couple of days ending on May 08 for atrial fib issues. She has had a 2D echocardiogram which noted normal sinus rhythm throughout study, estimated ejection fraction in the range of 60-65 %, normal left ventricular size, wall thickness is normal, no regional wall motion abnormalities are present, trace tricuspid valve regurgitation,estimated pulmonary arterial pressure is 23.1 mmHg. Pt was seen by cardiology at that time as well. - She was sent to the ED on 05/22/18 due to A. fib RVR. She saw Dr. Worrell her price accuracy supervisor on Monday 05/21, and they placed on a Holter monitor to be worn for 12 hours, which she returned om 05/22. States she was sent to the ER by home health care since her heart rate was sustaining in the 130s at home and reportedly was having persistent palpitations at home. - She was given 1 IV bolus of Cardizem in the ER and her heart rate dropped down into the 80s-90s however it is now increased back into the 120s-130s. - Pt was given a second Cardizem bolus and then started on Cardizem 30mg QID - Her HR has been in the 110's-120's overnight - Convert to Cardizem 120mg po daily this afternoon - Cont environmental monitoring technician - Consult cardiology - Cont. Coumadin, monitor INR - Cont. Rhythmol Alzheimer's dementia - Continue patient Aricept 5 mg p.o. daily, Namenda 10 mg daily and alprazolam 0.5 mg BID Hyperlipidemia - Continue home atorvastatin 20 mg p.o. daily Hypothyroidism - Continue home levothyroxine 75 mcg daily Hypertension - Patient's home amlodipine 2.5 mg p.o. daily, losartan 100 mg p.o. daily are on hold for now as Cardizem has been started and BP is currently stable. GERD - Continue patient's home omeprazole 20 mg p.o. daily Attending Attestation Patient examined. Assessment and plan formulated with Brooke Benz PA-C. I agree with the above. pt admitted with recurrent afib/rvr was on propafenone and coumadin cardizem added and doing better her price accuracy supervisor who was following closely was consulted. Progress Note: Quality VTE Deep Vein Thrombosis/Pulmonary Embolism Present on Admission: No _ (1) Dementia Qualifiers: Alzheimer's disease onset: Dementia behavioral disturbance: Dementia type : Alzheimer's disease
[2018-05-23] MEDS ORDERED: dilTIAZem CD 120 MG Capsule PO SCH ×2 (14:00→21:00)
--- NOTE | 2018-05-23 14:53 | ECG ---
Date Performed: 05/22/2018 Time Performed: 17:12:36 PTAGE: 83 years EKG: ATRIAL FLUTTER/TACHYCARDIA WITH RAPID VENTRICULAR RESPONSE INTERPRETATION BASED ON A DEFAUL T AGE OF 40 YEARS PREVIOUS TRACING : 05/06/2018 15.50 DOCTOR: Walker Cabello Interpretating Date/Time 05/23/2018 14:51:29
[2018-05-24] MEDS: Levothyroxine 75 MCG Tablet PO SCH (06:54)
[2018-05-24] MEDS: Propafenone 150 MG Tablet PO SCH (07:15)
[2018-05-24 07:25] LABS: Baso % (Auto) 0.7 % (0.0-2.0); Eos % (Auto) 0.7 % (0.0-4.0); Hematocrit 26.5 % (35.0-46.0); Hemoglobin 8.8 gm/dL (11.6-15.3); Lymph # (Auto) 1.7 th/mm3 (1.0-4.8); Lymph % (Auto) 27.8 % (9.0-44.0); Mean Corpuscular HGB Conc 33.1 % (32.0-36.0); Mean Corpuscular Hemoglobin 26.8 pg (27.0-34.0); Mono # (Auto) 0.4 th/mm3 (0.0-0.9); Mono % (Auto) 6.3 % (0.0-8.0); Neut % (Auto) 64.5 % (16.0-70.0); Platelet Count 235 th/mm3 (150-450); Red Blood Count 3.27 mil/mm3 (4.00-5.30); Red Cell Distribution Width 17.5 % (11.6-17.2); White Blood Count 6.2 th/mm3 (4.0-11.0)
[2018-05-24 07:28] LABS: INR 3.2 Ratio; Prothrombin Time 32.3 sec (9.8-11.6)
[2018-05-24 07:52] LABS: Calcium 7.9 mg/dL (8.5-10.1); Carbon Dioxide 25.6 meq/L (21.0-32.0); Potassium 4.8 meq/L (3.5-5.1)
--- NOTE | 2018-05-24 07:57 | P.CONCA ---
History of Present Illness Service: cardiology Consult date: 05/24/18 Requesting Physician: Osei Ramirez Reason for Consult: Atrial fibrillation, sss Primary Care Provider: UNKNOWN Chief Complaint: Palpitations, questionable shortness of breath per History of Present Illness: 83-year-old female with past medical history HTN, HLD, PAF with SSS and hx of PPM placement s/p remote removal following device infection who presented for heart racing sensation. She was found to be in A. fib with RVR. She is on propafenone for rhythm control at home. She was given diltiazem, currently orally which shows conversion pause lasting 4.8 seconds overnight. Of note, the patient was admitted about 2 weeks ago after a fall with questionable syncope and had a 24-hour Holter done which showed greater than 5-second pauses as well after receiving diltiazem. Again, as mentioned, the patient does have a prior history of pacemaker, but developed some delayed infection several months after placement and pacemaker was removed. She apparently was doing quite well for years without the assistance of the pacemaker device. Currently the patient denies any chest pain, shortness breath, palpitations, lightheadedness, dizziness, passing out. Review of Systems All other systems reviewed negative except as stated in HPI PMFSH - History History Provided By: Patient - Medical History Medical History: Medical History (Last Reviewed 05/23/18 @ 11:47 by Arielle Fleming) GERD (gastroesophageal reflux disease) HTN (hypertension) History of atrial fibrillation History of dementia History of hypothyroidism History of hysterectomy - Tobacco History Second Hand Smoke Exposure: No Smoking Status: Never smoker - Alcohol History How Often Do You Have a Drink Containing Alcohol: Never - Substance Use History Substance History: No History of Abuse - Travel History History of Recent Travel: No Recent Travel in the [place] Within the Last 8 Weeks: No Recent Travel Out of the Country Within the Last 8 Weeks: No - Immunization History Tetanus Immunization: Unsure Medications and Allergies Allergies Allergy/AdvReac Type Severity Reaction Status Date / Time adhesive Allergy Severe SKIN BREAK Verified 04/17/18 13:46 amiodarone Allergy Severe vision Verified 04/17/18 13:46 problems codeine Allergy Severe Rash Verified 04/17/18 13:46 penicillin G Allergy Severe Rash Verified 04/17/18 13:46 Sulfa (Sulfonamide Allergy Severe Rash Verified 04/17/18 13:46 Antibiotics) PAPER TAPE AdvReac Severe SKIN BREAK Uncoded 04/17/18 13:46 Home Medications Medication Instructions Recorded Confirmed Type alprazolam 0.5 mg PO BID 04/17/18 05/22/18 History amlodipine 2.5 mg PO DAILY 04/17/18 05/22/18 History atorvastatin 20 mg PO DAILY 04/17/18 05/22/18 History donepezil 5 mg PO DAILY 04/17/18 05/22/18 History levothyroxine 75 mcg PO DAILY 04/17/18 05/22/18 History losartan 100 mg PO DAILY 04/17/18 05/22/18 History memantine 10 mg PO DAILY 04/17/18 05/22/18 History omeprazole 20 mg PO DAILY 04/17/18 05/22/18 History potassium chloride 10 meq PO TID 04/17/18 05/22/18 History propafenone 150 mg PO Q8H 04/17/18 05/22/18 History warfarin 4 mg PO DAILY 04/17/18 05/22/18 History Active Medications: Active Medications Alprazolam (Xanax) 0.5 mg PO BID [facility] Last Admin: 05/23/18 21:42 Dose: 0.5 mg Atorvastatin Calcium (Lipitor) 20 mg PO DAILY [facility] Last Admin: 05/23/18 08:36 Dose: 20 mg Diltiazem HCl (Cardizem Cd 24hr) 120 mg PO DAILY [facility] Donepezil HCl (Aricept) 5 mg PO DAILY [facility] Last Admin: 05/23/18 08:37 Dose: 5 mg Ferrous Sulfate (Ferosul) 325 mg PO BID@1200,1700 [facility] Glycerin (Glycerin Adult Supp) 2 gm RECTAL DAILY PRN PRN Reason: CONSTIPATION Levothyroxine Sodium (Synthroid) 75 mcg PO DAILY@0600 [facility] Last Admin: 05/24/18 06:54 Dose: 75 mcg Memantine (Namenda) 10 mg PO DAILY [facility] Last Admin: 05/23/18 08:35 Dose: 10 mg Pantoprazole Sodium (Protonix) 20 mg PO DAILY [facility] Last Admin: 05/23/18 08:37 Dose: 20 mg Phytonadione (Mephyton Liq) 5 mg PO BID [facility] Potassium Chloride (Kcl) 10 meq PO TID [facility] Last Admin: 05/23/18 17:48 Dose: 10 meq Propafenone HCl (Rythmol) 150 mg PO Q8HR [facility] Last Admin: 05/24/18 07:15 Dose: Not Given Sodium Chloride (Ns Flush) 2 ml IV.FLUSH PRN PRN PRN Reason: FLUSH AFTER USING IV ACCESS Sodium Chloride (Ns Flush) 2 ml IV.FLUSH BID [facility] Last Admin: 05/23/18 21:42 Dose: 2 ml Exam Vital signs: Vital Signs 05/23/18 08:15 05/23/18 12:11 05/23/18 13:18 Temperature 97.9 F Pulse Rate 76 Respiratory Rate 18 Blood Pressure 103/52 L 123/69 Pulse Oximetry 98 100 05/23/18 15:29 05/23/18 15:47 05/23/18 20:00 Temperature 98.5 F 98.5 F Pulse Rate 84 97 H 78 Respiratory Rate 18 16 Blood Pressure 113/57 L 96/50 L Pulse Oximetry 100 100 05/23/18 21:43 05/23/18 23:46 05/24/18 02:26 Temperature 98.1 F Pulse Rate 91 H 83 64 Respiratory Rate 20 Blood Pressure 110/57 L 95/56 L 95/59 L Pulse Oximetry 97 05/24/18 04:00 Temperature 97.9 F Pulse Rate 67 Respiratory Rate 16 Blood Pressure 96/59 L Pulse Oximetry 99 Intake & Output 05/23/18 05/24/18 05/24/18 18:59 06:59 18:59 Intake Total 240 / 240 Balance 240 / 240 Intake: Oral 240 / 240 Other: Date of Last Bowel Movement 05/22/18 Narrative: GENERAL: Well-developed well-nourished. In no acute distress. NECK: No carotid bruits. No JVD. CARDIOVASCULAR: Regular rate and rhythm. No murmur appreciated. RESPIRATORY: No accessory muscle use. Clear to auscultation. Breath sounds equal bilaterally. MUSCULOSKELETAL: No clubbing or cyanosis. No edema. NEUROLOGICAL: Awake and alert. Normal speech. Results 05/24/18 06:20 05/24/18 06:20 Cardiac Enzymes 05/22/18 Range/Units 17:20 AST 23 (15-37) U/L Troponin I Less than 0.02 L (0.02-0.05) ng/mL Coagulation 10/30/18 10/31/18 11/01/18 Range/Units 17:20 06:49 06:20 PT 24.7 H 27.8 H 32.3 H (9.8-11.6) sec APTT 32.0 H (24.3-30.1) sec CBC 05/22/18 05/23/18 05/24/18 Range/Units 17:20 06:49 06:20 WBC 6.7 6.6 6.2 (4.0-11.0) th/mm3 RBC 3.48 L 3.95 L 3.27 L (4.00-5.30) mil/mm3 Hgb 9.5 L 10.5 L 8.8 L (11.6-15.3) gm/dL Hct 27.9 L 31.8 L 26.5 L (35.0-46.0) % Plt Count 272 295 235 (150-450) th/mm3 Neut # (Auto) 4.7 4.2 4.0 (1.8-7.7) th/mm3 Lymph # (Auto) 1.5 1.8 1.7 (1.0-4.8) th/mm3 [place] # (Auto) 0.4 0.3 0.4 (0.0-0.9) th/mm3 Eos # (Auto) 0.0 0.0 0.0 (0.0-0.4) th/mm3 Baso # (Auto) 0.1 0.1 0.0 (0.0-0.2) th/mm3 Comprehensive Metabolic Panel 05/22/18 05/23/18 Range/Units 17:20 06:49 Sodium 140 142 (136-145) meq/L Potassium 4.1 3.7 (3.5-5.1) meq/L Chloride 110 H 108 H (98-107) meq/L Carbon Dioxide 24.6 28.8 (21.0-32.0) meq/L BUN 21 H 16 (7-18) mg/dL Creatinine 1.14 H 0.91 (0.50-1.00) mg/dL Calcium 7.3 L* 8.3 L D (8.5-10.1) mg/dL AST 23 (15-37) U/L ALT 38 (10-53) U/L Alkaline Phosphatase 75 (45-117) U/L Total Protein 5.8 L (6.4-8.2) g/dL Albumin 3.2 L (3.4-5.0) g/dL Intake and Output 05/23/18 05/24/18 05/24/18 22:59 06:59 14:59 Other: Date of Last Bowel Movement 05/22/18 - Imaging and Cardiology Imaging: Impressions Chest X-Ray 05/22/18 17:30 CONCLUSION: No active disease. Assessment and Plan - Plan 83-year-old female with past medical history of A. fib, HTN, HLD, Alzheimer's who presented for heart racing sensation, found to be in A. fib with RVR, found to have recurrence of prolonged conversion pauses with rate control strategy. Assessment: Atrial fibrillation Sick sinus syndrome, with prolonged conversion pauses lasting greater than 5- second. Remote history of permanent pacemaker, removed due to infected device. Tachybradycardia syndrome Chronic anticoagulation on warfarin with supratherapeutic INR Normocytic anemia Plan: The patient is apprehensive to have another pacemaker after past infection, will consult electrophysiology to evaluate for possible A. fib ablation vs PPM Diltiazem 120 mg p.o. daily for rate control for now Monitor on telemetry Will give vitamin K 5 mg p.o. twice daily today and repeat INR tomorrow. Start ferrous sulfate 325 mg twice daily. Discussed Condition With: Patient, hospitalist, EP, Dr. Hogan - Attending Attestation Patient seen and examined. Agree with above. Discussed case with Dr Valdez who will see the patient later today and help her decide for PPM or AF ablation. He wished to hold off on INR reversal at this time. Will d/c Vit K.
--- NOTE | 2018-05-24 07:58 | P.PNIM ---
Subjective Interval history: Pt without any new complaints Denies any chest pain, SOB or palpitations. This morning on telemetry pt was noted to be bradycardic with HR in the 50's and noted pauses Physical Exam Vital signs: Last Vital Signs Temp 97.9 F 05/24/18 04:00 Pulse 67 05/24/18 04:00 Resp 16 05/24/18 04:00 BP 96/59 L 05/24/18 04:00 Pulse Ox 99 05/24/18 04:00 Narrative: General: NAD, AAOx3, some mild confusion intermittently Chest: CTA Cardiac: Irregularly irregular, bradycardic in the 50's Abd: +BS, soft, ND/NT Ext: No edema Results Labs CBC & Chem 7: 05/24/18 06:20 05/24/18 06:20 Imaging Chest X-Ray 05/22/18 17:30 CONCLUSION: No active disease. Assessment and Plan Assessment (1) Atrial fibrillation with rapid ventricular response: Code(s): I48.91 - Unspecified atrial fibrillation Status: Acute (2) Dyslipidemia: Code(s): E78.5 - Hyperlipidemia, unspecified Status: Chronic (3) Dementia: Code(s): F03.90 - Unspecified dementia without behavioral disturbance Status: Chronic (4) Anxiety: Code(s): F41.9 - Anxiety disorder, unspecified Status: Chronic Plan A. fib with RVR - Pt is an 83 y/o female with Alzheimer's dementia, atrial fibrillation on Coumadin, Schatzki's ring, hyperlipidemia, hypothyroidism, hypertension and GERD. She was recently admitted to [facility] for a couple of days ending on May 08 for atrial fib issues. She has had a 2D echocardiogram which noted normal sinus rhythm throughout study, estimated ejection fraction in the range of 60-65 %, normal left ventricular size, wall thickness is normal, no regional wall motion abnormalities are present, trace tricuspid valve regurgitation,estimated pulmonary arterial pressure is 23.1 mmHg. Pt was seen by cardiology at that time as well. - She was sent to the ED on 05/22/18 due to A. fib RVR. She saw Dr. Worrell her recycling tech on Monday 05/21, and they placed on a Holter monitor to be worn for 12 hours, which she returned om 05/22. States she was sent to the ER by home health care since her heart rate was sustaining in the 130s at home and reportedly was having persistent palpitations at home. - She was given 1 IV bolus of Cardizem in the ER and her heart rate dropped down into the 80s-90s however it is now increased back into the 120s-130s. - Pt was given a second Cardizem bolus and then started on Cardizem 30mg QID - Her HR had been in the 110's-120's overnight on 05/23 - Pt was converted to Cardizem CD 120mg po daily in the afternoon on 05/23 - Cardiology was consulted and pts Cardizem was changed to 120mg po BID on and pt received a second dose of Cardizem CD 120mg last night. - Early this morning pt became bradycardic with noted conversion pauses of up to 5 secs - Cardiology evaluated the pt this morning and discussed PPM placement. 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 - Dr. Valdez to be consulted to evaluate the pt as she is hesitant about PPM placement. Considering A. fib ablation. - Cont classroom monitor - Rhythmol stopped - Coumadin to be held - Cardizem CD changed back to 120mg po daily Alzheimer's dementia - Continue patient Aricept 5 mg p.o. daily, Namenda 10 mg daily and alprazolam 0.5 mg BID Hyperlipidemia - Continue home atorvastatin 20 mg p.o. daily Hypothyroidism - Continue home levothyroxine 75 mcg daily Hypertension - Patient's home amlodipine 2.5 mg p.o. daily, losartan 100 mg p.o. daily are on hold for now as Cardizem has been started and BP is currently stable. GERD - Continue patient's home omeprazole 20 mg p.o. daily Attending Attestation Patient examined. Assessment and plan formulated with Brooke Benz PA-C. I agree with the above. pt with afib and tachybrady syndrome. refused pm due to prior pm infections. going for ablation with dr Valdez. pt anticoagulated. Progress Note: Quality VTE Deep Vein Thrombosis/Pulmonary Embolism Present on Admission: No _ (1) Dementia Qualifiers: Alzheimer's disease onset: Dementia behavioral disturbance: Dementia type : Alzheimer's disease
[2018-05-24] MEDS ORDERED: Phytonadione 5 MG/SWFI 5 ML Oral Syringe PO SCH (09:00)
[2018-05-24] MEDS: Pantoprazole Sodium 20 MG DR Tablet PO SCH (11:34)
[2018-05-24] MEDS: Potassium Chloride 10 MEQ ER Capsule PO SCH ×3 (11:36→18:55)
[2018-05-24] MEDS: dilTIAZem CD 120 MG Capsule PO SCH (11:37)
[2018-05-24] MEDS: ALPRAZolam 0.5 MG Tablet PO SCH ×2 (11:37→21:37)
[2018-05-24] MEDS: Ferrous Sulfate 325 MG Tablet PO SCH ×2 (11:44→18:44)
[2018-05-24] MEDS ORDERED: LORazepam 1 MG Tablet SL PRN (15:58)
[2018-05-24] MEDS ORDERED: Sodium Chlor 0.9% Inj 500 ML IV.CONT SCH ×2 (16:00)
[2018-05-24] MEDS ORDERED: diphenhydrAMINE 2%/Zinc Cream 30 GM Tube TOPICAL PRN (16:00)
[2018-05-24] MEDS ORDERED: Phytonadione 5 MG/SWFI 5 ML Oral Syringe PO ONE (16:15)
--- NOTE | 2018-05-24 19:53 | MB ---
cc: Richie Valdez MD DATE: 05/24/2018 REASON FOR CONSULTATION: Atrial fibrillation, recurrent hospitalization. HISTORY OF PRESENT ILLNESS: Ms. Olvera is an 83-year-old female with a history of high blood pressure, hyperlipidemia, episodes of paroxysmal atrial fibrillation, sick sinus syndrome and had a previous permanent pacemaker inserted, recent hospitalization due to atrial fibrillation/atrial flutter with a fast ventricular response, readmitted again due to tachyarrhythmia. The patient received Cardizem. Over a 5-second pause observed. Converted back to sinus rhythm. I was consulted for further evaluation and management. The chart was reviewed. The patient was evaluated. ALLERGIES: AMIODARONE, PENICILLIN, CODEINE. SOCIAL HISTORY: Negative for smoking and drinking. FAMILY HISTORY: Noncontributory to her current medical condition. MEDICATIONS: Currently, the patient is on alprazolam, Cardizem IV. She was previously on Cardizem-CD 120 mg a day. She is on Aricept 5 mg a day, glimepiride mg a day. She is on Levoxyl 75 mcg a day, Namenda 10 mg a day, Protonix, potassium, propafenone 150 mg q.8 hours and Coumadin. REVIEW OF SYSTEMS: She refers recurrent episodes of tachyarrhythmia, very symptomatic. This is her second emergency room visit in less than a month. PHYSICAL EXAMINATION: GENERAL: Alert, fully oriented. VITAL SIGNS: Blood pressure on evaluation 127/57, pulse 60, respiratory rate 18. LUNGS: Ventilated. CARDIOVASCULAR: S1, S2. No gallop, no murmur. ABDOMEN: Soft. No mass. EXTREMITIES: No edema. DIAGNOSTIC DATA: Electrocardiogram on hospitalization, possible atrial fibrillation, atrial flutter, diffuse ST changes, fast ventricular response. Currently, telemetry shows sinus rhythm. LABORATORY DATA: Hemoglobin 8.8, coming down from 10.5, white blood cells 6.2. INR 3.2. Potassium 4.8, creatinine 1.05. ASSESSMENT AND RECOMMENDATIONS: Ms. Olvera has atrial fibrillation with a fast ventricular response. This is her second hospitalization due to tachyarrhythmia. She is on Cardizem. She is on propafenone. She has multiple pauses. She had a previous permanent pacemaker inserted that was removal due to infection in the past. I had a long conversation with her, as well as Dr. Hogan. Electrophysiology study and ablation discussed. The risks, the nature and the benefits of the procedure were clearly stated to her. Risks included pneumothorax, cardiac perforation, stroke and even . She understood and agreed to proceed. Procedure will be performed tomorrow morning. MD LILLIAN Carmona/nubia/kenneth , 04:00 PM , 04:11 PM
[2018-05-24] MEDS: Glycerin Adult 2 GM Supp RECTAL PRN (21:41)
[2018-05-25] MEDS: Levothyroxine 75 MCG Tablet PO SCH (05:50)
[2018-05-25 06:51] LABS: Baso % (Auto) 0.8 % (0.0-2.0); Eos % (Auto) 0.7 % (0.0-4.0); Hematocrit 26.3 % (35.0-46.0); Hemoglobin 8.7 gm/dL (11.6-15.3); Lymph # (Auto) 1.2 th/mm3 (1.0-4.8); Lymph % (Auto) 20.6 % (9.0-44.0); Mean Corpuscular HGB Conc 33.1 % (32.0-36.0); Mean Corpuscular Hemoglobin 26.6 pg (27.0-34.0); Mean Corpuscular Volume 80.4 fL (80.0-100.0); Mono # (Auto) 0.3 th/mm3 (0.0-0.9); Neut # (Auto) 4.1 th/mm3 (1.8-7.7); Neut % (Auto) 71.9 % (16.0-70.0); Platelet Count 202 th/mm3 (150-450); Red Blood Count 3.28 mil/mm3 (4.00-5.30); Red Cell Distribution Width 17.5 % (11.6-17.2); White Blood Count 5.7 th/mm3 (4.0-11.0)
[2018-05-25 06:55] LABS: INR 1.6 Ratio; Prothrombin Time 16.3 sec (9.8-11.6)
[2018-05-25 07:20] LABS: Calcium 7.9 mg/dL (8.5-10.1); Carbon Dioxide 23.8 meq/L (21.0-32.0); Potassium 4.1 meq/L (3.5-5.1)
--- NOTE | 2018-05-25 08:04 | P.PNIM ---
Subjective Interval history: No new complaints Pt is planned for A. fib ablation today No pauses noted on telemetry overnight. She is noted to be going in and out of A. fib on tele overnight. Physical Exam Vital signs: Last Vital Signs Temp 97.7 F 05/25/18 04:00 Pulse 69 05/25/18 04:00 Resp 16 05/25/18 04:00 BP 149/68 H 05/25/18 04:00 Pulse Ox 100 05/25/18 04:00 Narrative: General: NAD, AAOx3, some mild confusion intermittently Chest: CTA Cardiac: Irregularly irregular Abd: +BS, soft, ND/NT Ext: No edema Results Labs CBC & Chem 7: 05/25/18 06:14 05/25/18 06:14 Assessment and Plan Assessment (1) Atrial fibrillation with rapid ventricular response: Code(s): I48.91 - Unspecified atrial fibrillation Status: Acute (2) Dyslipidemia: Code(s): E78.5 - Hyperlipidemia, unspecified Status: Chronic (3) Dementia: Code(s): F03.90 - Unspecified dementia without behavioral disturbance Status: Chronic (4) Anxiety: Code(s): F41.9 - Anxiety disorder, unspecified Status: Chronic Plan A. fib with RVR - Pt is an 83 y/o female with Alzheimer's dementia, atrial fibrillation on Coumadin, Schatzki's ring, hyperlipidemia, hypothyroidism, hypertension and GERD. She was recently admitted to [facility] for a couple of days ending on May 08 for atrial fib issues. She has had a 2D echocardiogram which noted normal sinus rhythm throughout study, estimated ejection fraction in the range of 60-65 %, normal left ventricular size, wall thickness is normal, no regional wall motion abnormalities are present, trace tricuspid valve regurgitation,estimated pulmonary arterial pressure is 23.1 mmHg. Pt was seen by cardiology at that time as well. - She was sent to the ED on 05/22/18 due to A. fib RVR. She saw Dr. Worrell her oven tender on Monday 05/21, and they placed on a Holter monitor to be worn for 12 hours, which she returned om 05/22. States she was sent to the ER by home health care since her heart rate was sustaining in the 130s at home and reportedly was having persistent palpitations at home. - She was given 1 IV bolus of Cardizem in the ER and her heart rate dropped down into the 80s-90s however it increased back into the 120s-130s. - Pt was given a second Cardizem bolus and then started on Cardizem 30mg QID - Her HR had been in the 110's-120's overnight on 05/23 - Pt was converted to Cardizem CD 120mg po daily in the afternoon on 05/23 - Cardiology was consulted and pts Cardizem was changed to 120mg po BID on and pt received a second dose of Cardizem CD 120mg last night. - Early this morning pt became bradycardic with noted conversion pauses of up to 5 secs - Cardiology evaluated the pt this morning and discussed PPM placement. 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 - Appreciate consult from Dr. Valdez pt is planned for EPS for A. fib ablation today - Cont shelter monitor - Rhythmol stopped - Coumadin held, INR 1.6 today - Cardizem CD changed back to 120mg po daily Alzheimer's dementia - Continue patient Aricept 5 mg p.o. daily, Namenda 10 mg daily and alprazolam 0.5 mg BID Hyperlipidemia - Continue home atorvastatin 20 mg p.o. daily Hypothyroidism - Continue home levothyroxine 75 mcg daily Hypertension - Patient's home amlodipine 2.5 mg p.o. daily, losartan 100 mg p.o. daily are on hold for now as Cardizem has been started and BP is currently stable. GERD - Continue patient's home omeprazole 20 mg p.o. daily Progress Note: Quality VTE Deep Vein Thrombosis/Pulmonary Embolism Present on Admission: No _ (1) Dementia Qualifiers: Dementia type: Alzheimer's disease Alzheimer's disease onset: Dementia behavioral disturbance:
[2018-05-25] MEDS: dilTIAZem CD 120 MG Capsule PO SCH (09:53)
[2018-05-25] MEDS: Pantoprazole Sodium 20 MG DR Tablet PO SCH (09:54)
[2018-05-25] MEDS: Potassium Chloride 10 MEQ ER Capsule PO SCH ×2 (09:54→12:02)
[2018-05-25] MEDS: ALPRAZolam 0.5 MG Tablet PO SCH ×2 (09:55→20:24)
[2018-05-25] MEDS ORDERED: Levofloxacin 500 mg Premix Inj 500 MG/100 ML PIGGYBACK IV.SIG ONE (12:00)
[2018-05-25] MEDS: Ferrous Sulfate 325 MG Tablet PO SCH (12:01)
[2018-05-25] MEDS: Sod Chloride 0.9% Inj 1,000 ML IV.SIG SCH (12:03)
[2018-05-25] MEDS ORDERED: Sod Chloride 0.9% Inj 1,000 ML IV.SIG SCH (12:45)
[2018-05-25] MEDS ORDERED: Isoproterenol HCl Inj 0.2 MG/ML Ampul ONE (13:20)
[2018-05-25] MEDS ORDERED: Heparin/NS PF Inj 1,500 ML ONE (13:31)
[2018-05-25] MEDS ORDERED: Glycopyrrolate Inj 1 MG/5 ML Syringe IV.PUSH ONE (13:32)
[2018-05-25] MEDS ORDERED: Neostigmine Inj 5 MG/5 ML Syringe IV.PUSH ONE (13:32)
[2018-05-25] MEDS ORDERED: Lidocaine PF 1% Inj 5 ML Syringe OTHER ONE (13:32)
[2018-05-25] MEDS ORDERED: Heparin Drip 25,000 UNIT/250 ML BAG IV.CONT ONE (14:17)
[2018-05-25] MEDS ORDERED: Heparin 10,000 UNITS/10 ML Vial (for IV use) ONE (14:17)
[2018-05-25] MEDS ORDERED: Protamine Sulfate Inj 50 MG/5 ML Vial ONE (15:49)
--- NOTE | 2018-05-25 16:22 | CATHPROC ---
Patient Name: Amanda Olvera Study #: [id number] Initial MD: Richie Valdez Date of : 1935 Study Date: 05/25/2018 Cardiac Catheterization Report 05/25/2018 4:21:44 PM Financial #: [id number] 1 of 10 Patient Name: Amanda Olvera Study #: [id number] Initial MD: Richie Valdez Date of : 1935 Study Date: 05/25/2018 Entire Case Report Patient Information Patient Name Amanda Olvera Date of 1935 Age 83 years Financial # [id number] Gender F AlternateID Lab Number 2 Room Number G82 Height (in) 64.0 Height (cm) 162.5 BSA 1.63 Weight (lbs) 129.8 Weight (kg) 59.0 Patient Address/Phone Number Home Address [facility] Home Phone Number [phone] [facility] [address] Study Information Study Number Admission Scheduled Start Study Start [id number] May 24 2018 1:26PM 05/25/2018 May 25 2018 12:21PM [place] [facility] Cardiac Catheterization Admit Source Facility Department Other [facility] - Entry Rep Physician and Clinical Staff Initial Richie Kumar Technical Sales Support Manager Elvi Pabon RCIS Other Anesthesia, OCEAN LIFEGUARD SPECIALIST Recorder Michelle Bowers,SURESH Scrub Jordana Wheeler RCIS TECH2 Procedures Performed Procedure Location (Site) Vessel Name Ablation Procedure ICE CATHETER INSERT RA Atruim RF Ablation LT. ATRIUM LT. ATRIUM Equipment Time Engineer Of System Development Description Size Mfg Part Number Used/Scraped NEEDLE, TRANSSEPTAL NRG 98 [id number] 14:27 [employer] Used C1 *[id number] [employer]/ EP [id number] 14:27 KIT, TRANSDUCER / AFIB Used PACER *[id number] 05/25/2018 4:21:44 PM Financial #: [id number] 2 of 10 Patient Name: Amanda Olvera Study #: [id number] Initial MD: Richie Valdez Date of : 1935 Study Date: 05/25/2018 [id number] CATHETER, TACTICATH ABLAT BUNDLE 14:27 BUNDLE-[employer] Used 65 BUNDLE *[id number]- BUNDLE [id number] CATHETER, FR7 OPTIMA SPIRAL 14:27 BUNDLE-[employer] JOJO FR7 *[id number]- Used BUNDLE BUNDLE [id number] 14:27 BUNDLE-[employer]JO CATHETER, JSN, QUAD BUNDLE FR 5 *[id number]- Used BUNDLE [id number] 14:27 BUNDLE-[employer] JOJO CATHETER, JSN, QUAD BUNDLE FR 5 *[id number]- Used BUNDLE [id number] SET, COOL POINT TUBING 14:27 BUNDLE-[employer]. JOJO *[id number]- Used BUNDLE BUNDLE SHEATH, FR8.5 STEERABLE SM 14:27 BUNDLE-[employer] JOJO 71CM [id number] Used 71CM BUNDLE [id number] 15:59 CARDIVA MEDICAL VASCADE, FR5 CLOSURE SYSTEM FR 5 Used *[id number] 15:59 C[employer]A [employer]ICAL VASCADE, FR6 CLOSURE SYSTEM FR 6\\7 Used *[id number] 15:59 C[employer]A [employer]ICAL VASCADE, FR6 CLOSURE SYSTEM FR 6\\7 Used *[id number] 15:59 CARD[employer]A MEDICAL VASCADE, FR6 CLOSURE SYSTEM FR 6\\7 Used *[id number] 15:59 CARDIVA MEDICAL VASCADE, FR6 CLOSURE SYSTEM FR 6\\7 Used *[id number] COVER, TRANSDUCER CABLE 612-113 14:27 [employer] Used ACUNAV *[id number] 14:27 CORDIS/PACER SHEATH, FR10 WERNER 11CM FR 10 Used *[id number] 14:27 CORDIS/PACER SHEATH, FR9 WERNER 11CM FR 9 [id number] Used [id number] 14:27 [employer]eng BLANKET,WARM AIR CCL * Used *[id number] 14:27 [employer]eng PACK, CCL CUSTOM * Used *[id number] 14:27 MEDLINE PACER MAKI, LIMB * 4990 *[id number] Used 14:29 [employer] MEDICAL SHEATH, FR5.5 PRELUDE 11CM FR 5 [id number] Used [id number] 14:27 NAMIC TUBING, HIGH PRESSURE 48" 48" Used *[id number] 14:27 NAMIC TUBING, HIGH PRESSURE 48" 48" Used *4617911 [id number] 14:27 [employer] MEDICAL ELECTRODE KIT, DAISY X SURFACE * Used *[id number] 473306 14:27 [employer] MEDICAL SHEATH, EPS, FR6 FAST CATH FR 6 Used *[id number] 14:27 [employer] MEDICAL SHEATH, EPS, FR7 FAST CATH FR 7 [id number] Used 189315 14:27 [employer] MEDICAL SHEATH, EPS, FR8 FAST CATH FR 8 Used *[id number] CATHETER, ACUNAV FR10 ICE [id number] 14:31 KANDICE FR 10 Used (KANDICE) *[id number] [facility] PAD, ELECTROSURGICAL 14:27 * [id number] *[id number] Used SURGICAL GROUNDING (BLUE) 05/25/2018 4:21:44 PM Financial #: [id number] Patient Name: Amanda Olvera Study #: [id number] Initial MD: Richie Valdez Date of : 1935 Study Date: 05/25/2018 Insurance Information Insurance Payor Private Health Insurance Third Libertarian Third Libertarian Number [id number] History: Allergies Allergy Reaction Adhesives SKIN BREAK amiodarone vision problems codeine Rash Lipitor leg cramps Penicillin Rash Sulfa Rash PAPER TAPE SKIN BREAK Sulfa (Sulfonamide Antibiotics) Rash adhesive SKIN BREAK penicillin G Rash atorvastatin leg cramps History: Risk Factors Hypertension Dyslipidemia Yes Yes Labs Hgb (g/dl) Hct (%) RBC (MIL/MM3) WBC (l/cumm) Platelets (thousands) 11.60-17.00 35.00-51.00 4.00-5.90 4.00-11.00 150.00-450.00 8.0 26 3.2 5.7 202 Glucose (mg/dl) BUN (mg/dl) Creatinine (mg/dl) BUN:Creatinine (1:x) 74.00-106.00 7.00-18.00 0.50-1.30 10.00-20.00 95 24 0.8 30 Na (meq/l) K (meq/l) 136.00-145.00 3.50-5.10 140 4.1 INR (PTT:PT) 0.90-1.10 1.6 05/25/2018 4:21:44 PM Financial #: [id number] 4 of 10 Patient Name: Amanda Olvera Study #: [id number] Initial MD: Ricihe Valdez Date of : 1935 Study Date: 05/25/2018 Medication Medication Total Dose (Bolus/Oral) Medication Total Dosage/Unit 1% XYLOCAINE 40 mL HEPARIN 8000 units PROTAMINE 40 mg Medications (Bolus/Oral) Medication Time Given Dosage/Unit Administered By Reason 1% XYLOCAINE 05/25/2018 2:24:43 PM 20 mL Richie Valdez 20 mL 1% XYLOCAINE given in lab by Richie Valdez in Left Groin via Subcutaneous. 1% XYLOCAINE 05/25/2018 2:29:26 PM 20 mL Richie Valdez 20 mL 1% XYLOCAINE given in lab by Richie Valdez in Right Groin via Subcutaneous. HEPARIN 05/25/2018 2:37:01 PM 8000 units Anesthesia, OCEAN LIFEGUARD SPECIALIST As per physicians ve rbal order 8000 units HEPARIN given in lab by Anesthesia, OCEAN LIFEGUARD SPECIALIST via Peripheral IV. Ordered by Richie Valdez. Reas on: As per physicians verbal order. PROTAMINE 05/25/2018 3:52:34 PM 40 mg Anesthesia, OCEAN LIFEGUARD SPECIALIST As per physicians heide bal order 40 mg PROTAMINE given in lab by Anesthesia, OCEAN LIFEGUARD SPECIALIST via Peripheral IV. Ordered by Richie Valdez. Reason: As per physicians verbal order. Medication (Drip) Medication Time Given Dosage/Unit Concentration/Unit Diluent (ml) Solution ISUPREL 05/25/2018 3:36:55 PM 20 mcg/min 1 mg 250 NaCl .9 20 mcg/min ISUPREL given in lab by Anesthesia, OCEAN LIFEGUARD SPECIALIST via Peripheral IV. Pump/Drip Flow = 300 ml/hr usi ng NaCl .9 with a concentration of 1 mg in 250 ml. Ordered by Richie Valdez. Reason: As per physicians verbal order. 05/25/2018 4:21:44 PM Financial #: [id number] 5 of 10 Patient Name: Amanda Olvera Study #: [id number] Initial MD: Richie Valdez Date of : 1935 Study Date: 05/25/2018 Initial Case Assessment Cardiovascular HR Rhythm NIBP Chest Pain 65 sr 146/65 0 Edema Present Skin color Skin None Normal Warm Dry Circulatory - Right Pulses Dorsalis Pedis 2 Scale (0,1,2,3,4,d) Circulatory - Left Pulses Dorsalis Pedis 2 Scale (0,1,2,3,4,d) Circulatory - Lower Extremities Color Lower Right Color Lower Left Normal Normal Neurological State Oriented to time-place- Alert Moves all extremities person Respiration - General Respiration Rate SpO2 (%) (B/min) 16 99 05/25/2018 4:21:44 PM Financial #: [id number] 6 of 10 Patient Name: Amanda Olvera Study #: [id number] Initial MD: Richie Valdez Date of : 1935 Study Date: 05/25/2018 Final Case Assessment Cardiovascular HR Rhythm NIBP Chest Pain 101 st 132/61 0 Edema Present Skin color Skin None Normal Warm Dry Circulatory - Right Pulses Dorsalis Pedis 2 Scale (0,1,2,3,4,d) Circulatory - Left Pulses Dorsalis Pedis 2 Scale (0,1,2,3,4,d) Circulatory - Lower Extremities Color Lower Right Color Lower Left Normal Normal Neurological State Lethargic Moves all extremities Respiration - General Respiration Rate SpO2 (%) O2 (lpm) (B/min) 14 98 6 Comment: mask Chronological Log Time Study Chronological Log 13:32:25 Patient arrived via Bed. 13:32:32 Patient Name, D.O.B, / Armband Verified By R.N. 13:32:34 Consent signed by the physician and the patient and verified by the Entry Rep staff. 13:32:36 Pre-op and post- op instructions given; patient acknowledges understanding of instructions. 13:32:39 Verbal Stimulation=2 Physical Stimulation=2 Airway=2 Respiration=2 TOTAL=8. (0=absent, 1=li mited, 2=present) 13:32:41 Anesthesia at bedside. Assumes care of patient. Osei 13:32:49 Pre-op and post- op instructions given; patient acknowledges understanding of instructions. 13:39:46 Patient has been NPO for More than 6Hrs. 05/25/2018 4:21:44 PM Financial #: [id number] 7 of 10 Patient Name: Amanda Olvera Study #: [id number] Initial MD: Richie Valdez Date of : 1935 Study Date: 05/25/2018 13:39:55 Skin Breakdown- nonr per pt 13:40:04 Patient Warmer Placed on the Table. 13:40:05 Disposable Defibrillator Pads Placed On Patient. 13:40:06 Apryl Prominences Protected 13:40:07 A # 20 IV was noted in the Forearm (left). Grade = 0 0.9ns kvo 13:40:08 A # 20 IV was noted in the Forearm (right). Grade = 0 0.9ns kvo 13:40:09 History and physical on the chart or being dictated. Assessment: Initial Case, HR=65 BPM, Rhythm=sr, KETV=553/65 mmhg, Chest Pain=0, Edema=None, Col or=Normal, Skin = Warm, Dry Right Pulses: Fidel Ped=2 Left Pulses: Fidel Ped=2 13:50:46 Lower Right Extremities: Color=Normal Lower Left Extremities: Color=Normal Neurological: State=Alert, Ox3, [place]ATKINS Respiration: Resp=16 B/min, SpO2=99 % 13:54:11 Reference ECG taken 14:01:58 Bilateral groins prepped with 2% chlorhexidine, and draped after a 3 minute waiting time. 14:05:06 MD arrived. 14:08:13 Anesthesiologist present for intubation. 14:18:23 MD arrived. Time Out. Correct patient, procedure, procedure equipment, site and side verified with physicia n present. Time 14:20:00 concurred by MD, individual staff and OCEAN LIFEGUARD SPECIALIST. Time Out #2 - Consents verified, patient in correct position, all results are labled and displa yed, safety precautions 14:20:22 taken, antibiotics administered. Time out concurred by MD, individual staff and OCEAN LIFEGUARD SPECIALIST in procedu re 14:20:29 Case Start 14:20:30 [place] in progress 14:23:53 [place] complete 14:24:43 20 mL 1% XYLOCAINE given in lab by Richie Valdez in Left Groin via Subcutaneous. 14:26:14 Vascular access was obtained in the Fem Vein (left). 14:26:21 Vascular access was obtained in the Fem Vein (left). 14:27:00 Vascular access was obtained in the Fem Vein (left). 14:27:29 Vascular access was obtained in the Fem Art (left). A SHEATH, FR5.5 PRELUDE 11CM FR 5 was advanced into the Fem Art (left) using the Modified Seldi nger technique. 14:27:37 0.9ns pressure bag connected 14:28:55 A SHEATH, EPS, FR6 FAST CATH FR 6 was advanced into the Fem Vein (left) using the Sones cut down technique. 14:29:01 A SHEATH, EPS, FR7 FAST CATH FR 7 was advanced into the Fem Vein (left) using the Sones cut down technique. 14:29:04 A SHEATH, FR10 WERNER 11CM FR 10 was advanced into the Fem Vein (left) using the Sones cutd own technique. 14:29:26 20 mL 1% XYLOCAINE given in lab by Richie Valdez in Right Groin via Subcutaneous. 14:29:41 Vascular access was obtained in the Fem Vein (right). 14:29:53 A SHEATH, EPS, FR8 FAST CATH FR 8 was advanced into the Fem Vein (right) using the Modified Seldinger technique. A CATHETER, JSN, QUAD BUNDLE FR 5 was advanced vis Fem Vein (left) and placed in the CS. Placem ent was visually 14:30:21 confirmed under fluoroscopy. A CATHETER, JSN, QUAD BUNDLE FR 5 was advanced vis Fem Vein (left) and placed in the HIS. Place ment was 14:30:35 visually confirmed under fluoroscopy. 05/25/2018 4:21:44 PM Financial #: [id number] Patient Name: Amanda Olvera Study #: [id number] Initial MD: Richie Valdez Date of : 1935 Study Date: 05/25/2018 14:30:43 CATHETER, ACUNAV FR10 ICE (KANDICE) FR 10 Was Postioned. A SHEATH, FR8.5 STEERABLE SM 71CM BUNDLE 71CM was exchanged in the Fem Vein (right). This was n ecessary in 14:35:33 order for catheter support. 8000 units HEPARIN given in lab by Anesthesia, OCEAN LIFEGUARD SPECIALIST via Peripheral IV. Ordered by Richie Valdez . Reason: As per 14:37:01 physicians verbal order. 14:37:40 [place] in 14:44:00 beginning temp 35.3 14:45:16 A eps was advanced to the right atrium and passed through the septal wall to the left atriu m. 14:45:29 [place] out 14:46:17 Activated Clotting Time Drawn A CATHETER, FR7 OPTIMA SPIRAL BUNDLE FR7 was advanced vis Fem Vein (right) and placed in the LA . Placement 14:46:47 was visually confirmed under fluoroscopy. Mapping in progress. 14:53:36 ACT (Normal Range 90-180) = 471 14:53:55 Mapping complete. Catheter was removed A CATHETER, TACTICATH ABLAT 65 BUNDLE was advanced vis Fem Vein (right) and placed in the LA. P lacement was 14:54:07 visually confirmed under fluoroscopy. 14:58:29 RF Ablation of the LT. ATRIUM with a CATHETER, TACTICATH ABLAT 65 BUNDLE. 15:06:05 Activated Clotting Time Drawn 15:14:23 ACT (Normal Range 90-180) = 465 15:27:20 Ablation complete 15:27:30 Catheter was removed A CATHETER, FR7 OPTIMA SPIRAL BUNDLE FR7 was advanced vis Fem Vein (right) and placed in the LA . Placement 15:27:32 was visually confirmed under fluoroscopy. 15:28:24 EPS in progress. 20 mcg/min ISUPREL given in lab by Anesthesia, OCEAN LIFEGUARD SPECIALIST via Peripheral IV. Pump/Drip Flow = 300 ml/ hr using NaCl .9 15:36:55 with a concentration of 1 mg in 250 ml. Ordered by Richie Valdez. Reason: As per physicians heide bal order. 15:46:48 Isuprel off 15:47:10 All catheter(s) removed without difficulty A SHEATH, FR9 WERNER 11CM FR 9 was exchanged in the Fem Vein (right). This was necessary in ord er to minimize 15:48:00 site leakage. 40 mg PROTAMINE given in lab by Anesthesia, OCEAN LIFEGUARD SPECIALIST via Peripheral IV. Ordered by Richie Valdez. R heather: As per 15:52:34 physicians verbal order. 15:56:31 Ablation procedure performed: AFIB. 15:56:37 EP Procedure was performed. 15:56:49 VASCADE, FR6 CLOSURE SYSTEM FR 6\\7 placement in the Fem Vein (left) 15:58:28 VASCADE, FR6 CLOSURE SYSTEM FR 6\\7 placement in the Fem Vein (left) VASCADE, FR6 CLOSURE SYSTEM FR 6\\7 placement in the Fem Vein (left). Vacade not deployed in 10 fr sheath. 15:59:38 Pressure held by RW x 20 min 16:01:00 VASCADE, FR5 CLOSURE SYSTEM FR 5 placement in the Fem Art (left) 16:03:17 PACU called. Spoke to Lujan 16:03:19 VASCADE, FR6 CLOSURE SYSTEM FR 6\\7 placement in the Fem Vein (right) 16:03:27 Bedside Report will be given. 16:03:50 Activated Clotting Time Drawn 05/25/2018 4:21:44 PM Financial #: [id number] Patient Name: Amanda Olvera Study #: [id number] Initial MD: Richie Valdez Date of : 1935 Study Date: 05/25/2018 16:08:03 ACT (Normal Range 90-180) = 161 16:19:53 Case End (Physician broke scrub) Assessment: Final Case, IU=339 BPM, Rhythm=st, AEAM=452/61 mmhg, Chest Pain=0, Edema=None, Col or=Normal, Skin = Warm, Dry Right Pulses: Fidel Ped=2 Left Pulses: Fidel Ped=2 16:20:11 Lower Right Extremities: Color=Normal Lower Left Extremities: Color=Normal Neurological: State=Lethargic, [place] Respiration: Resp=14 B/min, SpO2=98 %, O2=6 lpm, Comment=mask 16:20:55 No case complications noted. 16:20:56 Cine recording checked. 16:20:58 Defibrillator and ground pads removed. Skin intact. 16:21:09 Sterile dressings applied to bilateral groin sites. 16:31:01 Patient moved to stretcher End Study - Contrast Media Used In Study Contrast Total Opened (mL) Total Used (mL) Total Wasted (mL) Unspecified 0 0 0 End Study - Maximum Contrast Load Max Contrast Load (mL) 368.8 End Study - Radiation Exposure Fluoro Time (minutes) 5.6 End Study - Patient Disposition Complications Transferred To Interventional Outcome No Telemetry Bed successful 05/25/2018 4:21:44 PM Financial #: [id number]
[2018-05-25] MEDS ORDERED: fentaNYL Citrate Inj 100 MCG/2 ML Ampul ONE (16:47)
[2018-05-26] MEDS: Levothyroxine 75 MCG Tablet PO SCH (05:38)
[2018-05-26] MEDS: Pantoprazole Sodium 20 MG DR Tablet PO SCH (09:22)
[2018-05-26] MEDS: ALPRAZolam 0.5 MG Tablet PO SCH (09:24)
[2018-05-26] MEDS: dilTIAZem CD 120 MG Capsule PO SCH (09:25)
[2018-05-26] MEDS: Potassium Chloride 10 MEQ ER Capsule PO SCH ×3 (09:28→17:27)
[2018-05-26] MEDS: Glycerin Adult 2 GM Supp RECTAL PRN ×2 (09:28→17:28)
--- NOTE | 2018-05-26 09:35 | P.PNIM ---
Subjective Interval history: no complaints Physical Exam Vital signs: Last Vital Signs Temp 98.3 F 05/26/18 07:41 Pulse 74 05/26/18 07:41 Resp 16 05/26/18 07:41 BP 104/54 L 05/26/18 07:41 Pulse Ox 98 05/26/18 07:41 Narrative: heart reg lung cta abd s/nt ext no edema Results Labs CBC & Chem 7: 05/25/18 06:14 05/25/18 06:14 Assessment and Plan Assessment (1) Atrial fibrillation with rapid ventricular response: Code(s): I48.91 - Unspecified atrial fibrillation Status: Acute (2) Dyslipidemia: Code(s): E78.5 - Hyperlipidemia, unspecified Status: Chronic (3) Dementia: Code(s): F03.90 - Unspecified dementia without behavioral disturbance Status: Chronic (4) Anxiety: Code(s): F41.9 - Anxiety disorder, unspecified Status: Chronic Plan A. fib with RVR - Pt is an 83 y/o female with Alzheimer's dementia, atrial fibrillation on Coumadin, Schatzki's ring, hyperlipidemia, hypothyroidism, hypertension and GERD. [place] [facility] ending on May 08 for atrial fib issues. She has had a 2D echocardiogram which noted normal sinus rhythm throughout study, estimated ejection fraction in the range of 60-65 %, normal left ventricular size, wall thickness is normal, no regional wall motion abnormalities are present, trace tricuspid valve regurgitation,estimated pulmonary arterial pressure is 23.1 mmHg. Pt was seen by cardiology at that time as well. - She was sent to the ED on 05/22/18 due to A. fib RVR. She saw Dr. Worrell her utilization review nurse on Monday 05/21, and they placed on a Holter monitor to be worn for 12 hours, which she returned om 05/22. States she was sent to the ER by home health care since her heart rate was sustaining in the 130s at home and reportedly was having persistent palpitations at home. - She was given 1 IV bolus of Cardizem in the ER and her heart rate dropped down into the 80s-90s however it increased back into the 120s-130s. - Pt was given a second Cardizem bolus and then started on Cardizem 30mg QID - Her HR had been in the 110's-120's overnight on 05/23 - Pt was converted to Cardizem CD 120mg po daily in the afternoon on 05/23 - Cardiology was consulted and pts Cardizem was changed to 120mg po BID on and pt received a second dose of Cardizem CD 120mg last night. - Early this morning pt became bradycardic with noted conversion pauses of up to 5 secs - Cardiology evaluated the pt and discussed PPM placement. 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 - Appreciate consult from Dr. Valdez . s/p ablation on 05/25 Pt now in sinus rhythm. will dc wiley and ambulate her. pt on eliquis and propafenone. clarify with cariology if they also still want the cardizem dc later today if stable. - Cardizem CD changed back to 120mg po daily Alzheimer's dementia - Continue patient Aricept 5 mg p.o. daily, Namenda 10 mg daily and alprazolam 0.5 mg BID Hyperlipidemia - Continue home atorvastatin 20 mg p.o. daily Hypothyroidism - Continue home levothyroxine 75 mcg daily Hypertension - GERD - Continue patient's home omeprazole 20 mg p.o. daily Progress Note: Quality VTE Deep Vein Thrombosis/Pulmonary Embolism Present on Admission: No _ (1) Dementia Qualifiers: Dementia type: Alzheimer's disease Alzheimer's disease onset: Dementia behavioral disturbance:
[2018-05-26] MEDS: Sod Chloride 0.9% Inj 1,000 ML IV.SIG SCH (12:48)
[2018-05-26] MEDS: Ferrous Sulfate 325 MG Tablet PO SCH ×2 (13:04→17:27)
--- NOTE | 2018-05-27 23:24 | ECG ---
Date Performed: 05/26/2018 Time Performed: 16:32:44 PTAGE: 83 years EKG: Sinus rhythm . Poor R wave progression Anterior T wave changes are non-specific Abnormal ECG PREVIOUS TRACING : 05/25/2018 21.51 Since the previous tracing, no significant change noted DOCTOR: John Bell Interpretating Date/Time 05/27/2018 23:22:47
--- NOTE | 2018-05-28 00:18 | ECG ---
Date Performed: 05/25/2018 Time Performed: 21:51:26 PTAGE: 83 years EKG: Sinus rhythm Anteroseptal T wave changes are nonspecific Borderline ECG PREVIOUS TRACING : 05/25/2018 16.48 Compared to previous tracing, T wave changes mildly more p rominent DOCTOR: John Bell Interpretating Date/Time 05/28/2018 00:17:19
--- NOTE | 2018-05-28 00:34 | ECG ---
Date Performed: 05/25/2018 Time Performed: 16:48:25 PTAGE: 83 years EKG: Sinus rhythm ANTERIOR T WAVE CHANGES ARE NONSPECIFIC PREVIOUS TRACING : 05/22/2018 17.12 Compared to previous tracing, now in sinus rhythm DOCTOR: John Bell Interpretating Date/Time 05/28/2018 00:32:49
== END 2018-05-26 19:15 | disposition home or self-care (01) ==
LOC: NEDA 16:50 → NEPC 16:50 → NEPGCP 21:50 → HCIS 05-25 14:55
PROVIDERS: ADMIT Hospitalist; ATTEND Hospitalist